=== PATIENT | female | born 1980 | race Caucasian/White ===

== ENCOUNTER 2016-11-07 08:34 | Inpatient (IN) | payer SELFPAY ==
[2016-11-07] MEDS ORDERED: FENTANYL CITRATE INJ/PF 100 MCG/2 ML AMPUL IV ONE ×2 (09:11→09:54)
[2016-11-07] MEDS ORDERED: ETOMIDATE INJ/PF 20 MG/10 ML SDV IV ONE (09:12)
[2016-11-07] MEDS ORDERED: MIDAZOLAM 2 MG/2 ML INJ IV ONE (09:12)
--- NOTE | 2016-11-07 09:25 | RADIOLOGY REPORT (SQ) ---
EXAM DESCRIPTION: CHEST PA/LAT COMPLETED DATE/TIME: 11/07/2016 9:01 am REASON FOR STUDY: feels like lung has collapsed, like before COMPARISON: Chest films 03/24/2015, 03/28/2015, 04/07/2015, 12/24/2015 EXAM PARAMETERS: NUMBER OF VIEWS: two views TECHNIQUE: Digital Frontal and Lateral radiographic views of the chest acquired. RADIATION DOSE: NA LIMITATIONS: none FINDINGS: LUNGS AND PLEURA: Moderate-sized, about 40% to 50%, right-sided pneumothorax with partial collapse of the right lung and trace right pleural fluid. Left lung well inflated and clear. No left pneumothorax or pleural effusion. There is very mild right to left mediastinal shift. MEDIASTINUM AND HILAR STRUCTURES: Very mild right to left mediastinal shift. No masses. HEART AND VASCULAR STRUCTURES: Heart normal size. No evidence for failure. BONES: No acute findings. HARDWARE: None in the chest. OTHER: No other significant finding. IMPRESSION: Moderate-sized right pneumothorax with partial collapse of the right lung, and very mild right to left mediastinal shift. COMMENT: Pertinent findings on the imaging study reported as a CRITICAL RESULT to ELMO RAPHAEL NP at09:15 on 11/07/2016. Category of Critical Result: Right pneumothorax with mediastinal shift TECHNICAL DOCUMENTATION: JOB ID: [id number] [employer]- All Rights Reserved
--- NOTE | 2016-11-07 09:42 | ER Document Report ---
ED General <AUSTEN AKBAR - Last Filed: 11/07/16 11:05> - General Mode of Arrival: Ambulatory Information source: Patient TRAVEL OUTSIDE OF THE [place] IN LAST 30 DAYS: No - HPI Onset: Just prior to arrival Onset/Duration: Sudden Quality of pain: Sharp Severity: Severe Pain Level: 5 Associated symptoms: None Exacerbated by: Deep breathing Relieved by: Denies Similar symptoms previously: Yes Recently seen / treated by doctor: No <ELMO RAPHAEL - Last Filed: 11/07/16 11:38> - General Chief Complaint: Shortness Of Breath Stated Complaint: DIFFICULTY BREATHING Time Seen by Provider: 11/07/16 08:53 Notes: Patient presents emergency department with complaints of a possible collapsed lung. Patient reports history of spontaneous pneumothorax in the past. She reports she was doing fine this morning. Denies recent cough. Denies trauma. Reports she bent over to tie her shoes felt a bubble in her back and then stood up and had excruciating pain to the right side. She reports this is the same way it felt when she had the last pneumothorax. Reports she has had nothing to eat/drink. 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 Lives with: Family Family History: Arthritis, CVA, DM, Hyperlipidemia, Hypertension, Malignancy Patient has suicidal ideation: No Patient has homicidal ideation: No Pulmonary Medical History: Reports: Hx Bronchitis, Other - pneumothorax Renal/ Medical History: Denies: Hx Peritoneal Dialysis Surgical Hx: Negative - Immunizations Immunizations up to date: No Hx Diphtheria, Pertussis, Tetanus Vaccination: No <ELMO RAPHAEL - Last Filed: 11/07/16 11:38> Review of Systems <AUSTEN AKBAR - Last Filed: 11/07/16 11:05> <ELMO RAPHAEL - Last Filed: 11/07/16 11:38> - Review of Systems Notes: Review HPI for review of systems., All other systems negative (ELMO RAPHAEL) Physical Exam <AUSTEN AKBAR - Last Filed: 11/07/16 11:05> <DONAVONELMO - Last Filed: 11/07/16 11:38> - Vital signs Vitals: Temp Pulse Resp BP Pulse Ox 97.7 F 99 22 H 119/79 97 11/07/16 08:38 11/07/16 08:38 11/07/16 08:38 11/07/16 08:38 11/07/16 08:38 - Notes Notes: PHYSICAL EXAMINATION: GENERAL: nontoxic looking, looks like she is hurting HEAD: Atraumatic, normocephalic. EYES: Pupils equal round extraocular movements intact, sclera anicteric, conjunctiva are normal. ENT: nares patent, oropharynx clear without exudates. Moist mucous membranes. NECK: Normal range of motion, supple without lymphadenopathy LUNGS: right side A&P decreased, left clear, no SOB, no difficulty breathing, 02sat 100% HEART: Regular rate and rhythm without murmurs ABDOMEN: Soft, no tenderness. No guarding, no rebound EXTREMITIES: Normal range of motion, no pitting edema. No cyanosis. NEUROLOGICAL: Cranial nerves grossly intact. Normal sensory/motor exams. PSYCH: Normal mood, normal affect. SKIN: Warm, Dry, normal turgor, no rashes or lesions noted (BASHIR RAPHAELRICIA) Course <AUSTEN AKBAR - Last Filed: 11/07/16 11:05> - Diagnostic Test Radiology reviewed: Image reviewed, Reports reviewed - #1 first xray- spont. pneumo 40% per dr christine, radiologist #2IMPRESSION: Interval placement of a right-sided chest tube with the tip coiled at the apex right hemithorax Resolved right apical pneumothorax. Resolved right to left mediastinal shift Trace right chest wall air Moderate gaseous distention of the stomach - Consults shady Time consulted: 09:53 Consulted provider: will come to ER <DONAVONELMO - Last Filed: 11/07/16 11:38> - Re-evaluation Re-evalutation: 11/07/16 09:54 24 Romansh chest tube placed by Dr. Akbar. PCXY confirmed placement, pneumo resolved, Dr. Foster consult for admission. He agrees with admission to regular floor. Patient complaining of pain now, fentanyl ordered. Patient to remain on O2 at 2l 11/07/16 10:00 dr foster in the ED 11/07/16 11:20 Pt in pain, RN contacted Dr. Foster for medications. Verbal orders written on these to be faxed out pharmacy and she will need to wait for pharmacy to populate the mar. Therefore I ordered 1 mg of Dilaudid for patient pain. 11/07/16 11:38 (ELMO RAPHAEL) - Vital Signs Vital signs: Temp Pulse Resp BP Pulse Ox 97.7 F 67 14 112/71 100 11/07/16 08:38 11/07/16 09:55 11/07/16 11:31 11/07/16 11:31 11/07/16 11:31 - Consults shady Reason for consultation: 11/07/16 09:53 spontaneous pneumothorax, chest tube placement (ELMO RAPHAEL) Procedures - Chest Tube Right Consent obtained: Yes Chest tube pre-insertion: Sterile PPE donned, Chloraprep applied, Sterile drapes applied Anesthetic type: 1% Lidocaine Chest tube post-insertion: Air thompson heard, Sutured, Position confirmed w/ CXR, Low intermittent suction - cxr with tube coiled in apex and lung reinflated. Chest tube drainage: air Number of attempts: 1 Complications: Yes - bagged for 2-3 minutes remaining at 100% the entire time after sedative med - Conscious Sedation Conscious sedation Consent obtained: Yes Indication: pneumothorax Last meal: no food today Normal healthy pt.: P1. - ASA Classification Airway Evaluation: Normal anatomy Mallampati Classification: Class 1 Used during procedure: IV access obtained, Pulse ox on pt., youth nutritional monitor on pt. Medications administered: Versed, Fentanyl, Etomidate Reversal agents: None I personally performed/intraservice time: Sedation, Procedure Complications: No <AUSTEN AKBAR - Last Filed: 11/07/16 11:05> Discharge <AUSTEN AKBAR - Last Filed: 11/07/16 11:05> - Discharge Admitting Provider: Surgicalist - cristian Unit Admitted: Surgical Floor <ELMO RAPHAEL - Last Filed: 11/07/16 11:38> - Discharge Clinical Impression: Pneumothorax Qualifiers: Pneumothorax type: spontaneous, primary Qualified Code(s): J93.11 - Primary spontaneous pneumothorax Condition: Stable Disposition: ADMITTED INPATIENT
--- NOTE | 2016-11-07 10:19 | RADIOLOGY REPORT (SQ) ---
EXAM DESCRIPTION: CHEST SINGLE VIEW COMPLETED DATE/TIME: 11/07/2016 10:02 am REASON FOR STUDY: chest tube placed, COMPARISON: Two-view chest 11/07/2016 EXAM PARAMETERS: NUMBER OF VIEWS: One view. TECHNIQUE: Single frontal radiographic view of the chest acquired. RADIATION DOSE: NA LIMITATIONS: None. FINDINGS: Interval placement of a right-sided chest tube, the tip is curled in the right lung apex. Resolution of the right pneumothorax. Resolved right to left mediastinal shift trace right chest wa ll air. LUNGS AND PLEURA: Resolved right pneumothorax. No focal infiltrates. No pleural effusions. MEDIASTINUM AND HILAR STRUCTURES: No masses. Contour normal. HEART AND VASCULAR STRUCTURES: Heart normal in size. Normal vasculature. BONES: No acute findings. HARDWARE: Right apical chest tube in place OTHER: Moderate gaseous distention of the stomach IMPRESSION: Interval placement of a right-sided chest tube with the tip coiled at the apex right hem ithorax Resolved right apical pneumothorax. Resolved right to left mediastinal shift Trace right chest wall air Moderate gaseous distention of the stomach TECHNICAL DOCUMENTATION: JOB ID: [id number]
[2016-11-07] MEDS ORDERED: HYDROMORPHONE HCL INJ/PF 2 MG/ML AMPULE IV ONE (11:20)
--- NOTE | 2016-11-07 12:27 | HISTORY AND PHYSICAL E ---
History and Physical NAME: VALENTIN WILDER : 1980 AGE: 36Y ADMITTED: 11/07/2016 ROOM: ED60 CHIEF COMPLAINT: Right chest pain. HISTORY OF PRESENT ILLNESS: This is a 36-year-old female who woke up this morning with severe right chest pain. She actually went to the bathroom and when she stooped down and tried to tie her shoelace developed severe pains in the right chest and then went to the emergency room where a chest x-ray showed at least a 40% pneumothorax of the right chest. A chest tube was placed in the emergency room by the ER physician. PAST HISTORY: History of a spontaneous right pneumothorax in 2014. She apparently was here and had a chest tube placed in the right chest. No other past medical history. ALLERGIES: NO KNOWN. FAMILY HISTORY: Noncontributory. REVIEW OF SYSTEMS: As in HPI. Denies any diarrhea, constipation, or dysuria. No headaches. No abdominal pains. Admits to having chest pains with shortness of breath. No neurologic abnormality. Denies any symptoms. No easy bruisability. The rest of the systems are reviewed and unremarkable. SOCIAL HISTORY: Smokes about a half a pack a day for 20 years. Denies alcohol or recreational drug use. PHYSICAL EXAM: GENERAL: Well-developed, well-nourished, 36-year-old female, alert and oriented. Complaining of right chest pain. NECK: Supple. No thyromegaly. LUNGS: Decreased breath sounds on the right side. Right chest tube was just placed by the ER physician. HEART: Showed regular sinus rhythm. ABDOMEN: Soft, nontender. EXTREMITIES: No edema. IMPRESSION: Spontaneous right pneumothorax, recurrent. PLAN: 1. Continue to keep a chest tube to water seal and suction. 2. Two serial portable x-rays. 3. Since this is the second episode for this patient, she has a high-risk to have another third episode and most likely I will have to refer her to a thoracic surgeon after discharge for possible VATS therapy of the right lung. DICTATING PHYSICIAN: NATHANIEL BRANTLEY M.D. [id number] PHY#: [id number] ID: [id number] JOB#: [id number] ACCT: [id number] cc:Cassius NAPOLES MD
[2016-11-07] MEDS: HYDROMORPHONE HCL INJ/PF 2 MG/ML AMPULE IV PRN ×3 (13:49→20:26)
[2016-11-07] MEDS: ONDANSETRON HCL INJ/PF 4 MG/2 ML SDV IV PRN ×2 (16:16→22:26)
[2016-11-08] MEDS: HYDROMORPHONE HCL INJ/PF 2 MG/ML AMPULE IV PRN ×6 (00:19→17:51)
[2016-11-08] MEDS: ONDANSETRON HCL INJ/PF 4 MG/2 ML SDV IV PRN ×3 (06:48→20:28)
[2016-11-08] MEDS ORDERED: ENOXAPARIN SODIUM INJ 30 MG/0.3 ML DISP.SYRIN SUBCUT SCH (10:00)
--- NOTE | 2016-11-08 12:52 | PROGRESS NOTE E ---
Progress Note NAME: VALENTIN WILDER : 1980 AGE: 36Y DATE: 11/08/2016 ROOM: 531 Her chest x-ray showed resolution of the right pneumothorax. She is still in a lot of pain, however. In the meantime, we will stop the suction from the chest tube since there is no air leak. I might remove the tube tonight or in the a.m. DICTATING PHYSICIAN: NATHANIEL BRANTLEY M.D. [id number] PHY#: [id number] ID: [id number] JOB#: [id number] ACCT: [id number] cc: >
--- NOTE | 2016-11-08 13:14 | RADIOLOGY REPORT (SQ) ---
EXAM DESCRIPTION: CHEST SINGLE VIEW COMPLETED DATE/TIME: 11/08/2016 1:01 pm REASON FOR STUDY: pneumothorax rt COMPARISON: 11/07/2016. EXAM PARAMETERS: NUMBER OF VIEWS: One view. TECHNIQUE: Single frontal radiographic view of the chest acquired. RADIATION DOSE: NA LIMITATIONS: None. FINDINGS: LUNGS AND PLEURA: No opacities, masses or pneumothorax. No pleural effusion. MEDIASTINUM AND HILAR STRUCTURES: No masses. Contour normal. HEART AND VASCULAR STRUCTURES: Heart normal in size. Normal vasculature. BONES: No acute findings. HARDWARE: Stable right-sided chest tube. OTHER: No other significant finding. IMPRESSION: STABLE RIGHT SIDE CHEST TUBE. NO PNEUMOTHORAX. NO ACUTE FINDINGS. TECHNICAL DOCUMENTATION: JOB ID: [id number]
--- NOTE | 2016-11-08 15:47 | OPERATIVE REPORT E ---
Operative Report NAME: VALENTIN WILDER : 1980 AGE: 36Y DATE OF SURGERY: 11/08/2016 ROOM: 531 PREOPERATIVE DIAGNOSIS: Resolved right pneumothorax, post right chest tube placement. POSTOPERATIVE DIAGNOSIS: Resolved right pneumothorax, post right chest tube placement. OPERATION: Removal of right chest tube. SURGEON: NATHANIEL BRANTLEY M.D. ANESTHESIA: Sedation. INDICATION: This is a 36-year-old female who had a spontaneous right pneumothorax yesterday morning. A right chest tube was inserted in the emergency room by the ER physician with resolution of the pneumothorax. Chest x-ray today also showed resolution of the pneumothorax. PROCEDURE: The patient was given IV Dilaudid for sedation. The patient was then placed in the left lateral decubitus position with the right arm extended over the head and chest tube insertion site dressing removed. The suture around the chest tube was then cut and a dressing with Xeroform gauze was applied immediately to the chest tube insertion site after pulling the chest tube quickly. The patient was asked to take some deep breaths and then hold her breath prior to removal of the chest tube. The patient able to breathe quite well post removal of the chest tube. Occlusive dressing was placed around the dressing. A chest x-ray will be obtained in about an hour to make sure there is no recurrence of the pneumothorax. If there is no recurrence or minimal pneumothorax, then patient can be discharged. She will be followed in the clinic and also with possible cardiothoracic surgeon for VATS treatment of recurrent pneumothorax. DICTATING PHYSICIAN: NATHANIEL BRANTLEY M.D. [id number] PHY#: [id number] ID: [id number] JOB#: [id number] ACCT: [id number] cc:NATHANIEL BRANTLEY M.D. >
--- NOTE | 2016-11-08 16:20 | RADIOLOGY REPORT (SQ) ---
EXAM DESCRIPTION: CHEST SINGLE VIEW COMPLETED DATE/TIME: 11/08/2016 4:04 pm REASON FOR STUDY: post chest tube removal COMPARISON: 11/08/2016. EXAM PARAMETERS: NUMBER OF VIEWS: One view. TECHNIQUE: Single frontal radiographic view of the chest acquired. RADIATION DOSE: NA LIMITATIONS: None. FINDINGS: LUNGS AND PLEURA: Redevelopment of right side pneumothorax following chest tube removal. Left lung clear. MEDIASTINUM AND HILAR STRUCTURES: No masses. Contour normal. HEART AND VASCULAR STRUCTURES: Heart normal in size. Normal vasculature. BONES: No acute findings. HARDWARE: None in the chest. OTHER: No other significant finding. IMPRESSION: REDEVELOPMENT OF RIGHT-SIDED PNEUMOTHORAX FOLLOWING CHEST TUBE REMOVAL. TECHNICAL DOCUMENTATION: JOB ID: [id number]
[2016-11-08] MEDS ORDERED: LIDOCAINE 1% INJ-PF (10 MG/ML) 30 ML SDV ONE (17:41)
[2016-11-08] MEDS ORDERED: LIDOCAINE 1% INJ (10 MG/ML) 10 ML MDV INJ ONE (18:33)
--- NOTE | 2016-11-08 21:00 | RADIOLOGY REPORT (SQ) ---
EXAM DESCRIPTION: CHEST SINGLE VIEW COMPLETED DATE/TIME: 11/08/2016 6:54 pm REASON FOR STUDY: post reinsertion of chest tube COMPARISON: 11/08/2016 at 1500 hours EXAM PARAMETERS: NUMBER OF VIEWS: One view. TECHNIQUE: Single frontal radiographic view of the chest acquired. RADIATION DOSE: NA LIMITATIONS: None. FINDINGS: LUNGS AND PLEURA: No opacities, masses or pneumothorax. No pleural effusion. MEDIASTINUM AND HILAR STRUCTURES: No masses. Contour normal. HEART AND VASCULAR STRUCTURES: Heart normal in size. Normal vasculature. BONES: No acute findings. HARDWARE: Right chest tube with tip overlying the right apex. OTHER: No other significant finding. IMPRESSION: Right chest tube with tip overlying the right apex. No residual pneumothorax identified . TECHNICAL DOCUMENTATION: JOB ID: [id number]
--- NOTE | 2016-11-08 22:17 | OPERATIVE REPORT E ---
Operative Report NAME: VALENTIN WILDER : 1980 AGE: 36Y DATE OF SURGERY: 11/08/16 ROOM: 531 PREOPERATIVE DIAGNOSIS: Recurrent right pneumothorax. POSTOPERATIVE DIAGNOSIS: Recurrent right pneumothorax. PROCEDURE: Placement of new chest tube of the right 5th and 3rd costal space, mid clavicular line. SURGEON: NATHANIEL BRANTLEY M.D. ANESTHESIA: Local MAC. INDICATION: This is a 36-year-old female who had a spontaneous pneumothorax on the right side 2 days ago. This is her second episode. The first was in 2014. She is a heavy smoker. The chest x-ray today from the first chest tube insertion showed the lung was completely reexpanded. The first chest tube was then removed, but post removal of the chest tube showed at least a 20% recurrent pneumothorax. Because of this, another chest tube is being inserted. DESCRIPTION OF PROCEDURE: Patient was placed in the supine position with the head slightly elevated and the right breast and below the breast areas were then prepped and draped in the usual sterile fashion. Local anesthesia was infiltrated along the 5th intercostal space just below the breast. A 1.5 cm incision was made. Further anesthesia was infiltrated. Patient was given 1 mg of Dilaudid a few minutes earlier. Next, the fifth intercostal space was then bluntly dissected. Further local anesthesia infiltrated along the pleura. Next, the pleura was then punctured and enlarged with a hemostat and a 24 [place] chest tube was inserted up to about 19 cm margaux. It was then anchored to the skin with 0-Silk. A Vaseline gauze was then placed around the insertion site and a sterile gauze was used as a dressing. The chest tube was then connected to a Pleur-Evac. The connections were then reinforced with adhesive tape. A stat portable chest x-ray will be obtained post placement of the chest tube. Patient tolerated the procedure well. DICTATING PHYSICIAN: NATHANIEL BRANTLEY M.D. [id number] PHY#: [id number] ID: [id number] JOB#: [id number] ACCT: [id number] cc:NATHANIEL BRANTLEY M.D. >
[2016-11-09] MEDS: HYDROMORPHONE HCL INJ/PF 2 MG/ML AMPULE IV PRN ×6 (00:03→22:00)
[2016-11-09] MEDS: NORMAL SALINE 1000 ML 1,000 ML IV PRN ×2 (04:59→16:07)
[2016-11-09] MEDS: ONDANSETRON HCL INJ/PF 4 MG/2 ML SDV IV PRN (05:04)
--- NOTE | 2016-11-09 09:02 | RADIOLOGY REPORT (SQ) ---
EXAM DESCRIPTION: CHEST PA/LAT COMPLETED DATE/TIME: 11/09/2016 8:54 am REASON FOR STUDY: chest tube COMPARISON: 11/08/2016. EXAM PARAMETERS: NUMBER OF VIEWS: two views TECHNIQUE: Digital Frontal and Lateral radiographic views of the chest acquired. RADIATION DOSE: NA LIMITATIONS: none FINDINGS: LUNGS AND PLEURA: No opacities, masses or pneumothorax. No pleural effusion. MEDIASTINUM AND HILAR STRUCTURES: No masses or contour abnormalities. HEART AND VASCULAR STRUCTURES: Heart normal size. No evidence for failure. BONES: No acute findings. HARDWARE: Stable right chest tube. OTHER: No other significant finding. IMPRESSION: STABLE RIGHT CHEST TUBE. NO PNEUMOTHORAX. TECHNICAL DOCUMENTATION: JOB ID: [id number] [employer]- All Rights Reserved
--- NOTE | 2016-11-09 09:21 | PDOC PROGRESS REPORT ---
Subjective Progress Note for:: 11/09/16 Subjective:: Patient complaining of some pain at the chest tube insertion site Physical Exam Vital Signs: Temp Pulse Resp BP Pulse Ox 98.4 F 78 16 113/58 L 95 11/09/16 07:42 11/09/16 07:42 11/09/16 07:42 11/09/16 07:42 11/09/16 07:42 Intake & Output 11/08/16 11/09/16 11/10/16 06:59 06:59 06:59 Intake Total 590 2223 Output Total 20 15 Balance 570 2208 Weight 40.8 kg 41.9 kg General appearance: PRESENT: no acute distress Respiratory exam: PRESENT: other - Chest tube dressing in place; no subcu air. Chest tube has some fluctuation in the waterseal compartment; there is no gillian air leak. I placed chest tube on waterseal Results Impressions: Chest X-Ray 11/09/16 00:00 IMPRESSION: STABLE RIGHT CHEST TUBE. NO PNEUMOTHORAX. Assessment & Plan - Diagnosis (1) Pneumothorax Qualifiers: Pneumothorax type: spontaneous, primary Qualified Code(s): J93.11 - Primary spontaneous pneumothorax Is this a current diagnosis for this admission?: YesPlan: Post chest tube placement and repositioning, now with chest x-ray unexpanded, chest tube in excellent position Plan: 1. Waterseal 2. Role of smoking cessation discussed 3. Check chest x-ray in a.m. Satisfactory, plan to remove chest tube
[2016-11-09] MEDS: DOCUSATE SODIUM 100 MG CAPSULE PO SCH (09:31)
[2016-11-10] MEDS: HYDROMORPHONE HCL INJ/PF 2 MG/ML AMPULE IV PRN ×4 (00:50→15:14)
--- NOTE | 2016-11-10 08:38 | RADIOLOGY REPORT (SQ) ---
EXAM DESCRIPTION: CHEST PA/LAT COMPLETED DATE/TIME: 11/10/2016 8:26 am REASON FOR STUDY: Tube placement right side COMPARISON: 11/09/2016 EXAM PARAMETERS: NUMBER OF VIEWS: two views TECHNIQUE: Digital Frontal and Lateral radiographic views of the chest acquired. RADIATION DOSE: NA LIMITATIONS: none FINDINGS: LUNGS AND PLEURA: Small right apical pneumothorax. Small right pleural effusion. Lungs a ppear free of active infiltrate. No effusion or pneumothorax on the left. MEDIASTINUM AND HILAR STRUCTURES: No masses or contour abnormalities. HEART AND VASCULAR STRUCTURES: Heart normal size. No evidence for failure. BONES: No acute findings. HARDWARE: Right chest tube with tip the apex. OTHER: No other significant finding. IMPRESSION: 1. Small right apical pneumothorax and small right pleural effusion with right chest tu be in place. TECHNICAL DOCUMENTATION: JOB ID: [id number] [employer]- All Rights Reserved
[2016-11-10] MEDS: DOCUSATE SODIUM 100 MG CAPSULE PO SCH (09:35)
--- NOTE | 2016-11-10 09:36 | PDOC PROGRESS REPORT ---
Subjective Progress Note for:: 11/10/16 Subjective:: To be comfortable. No shortness of breath. Physical Exam Vital Signs: Temp Pulse Resp BP Pulse Ox 98.6 F 64 16 102/52 L 97 11/10/16 08:00 11/10/16 08:00 11/10/16 08:00 11/10/16 08:00 11/09/16 23:34 Intake & Output 11/09/16 11/10/16 11/11/16 06:59 06:59 06:59 Intake Total 2223 3298 Output Total 15 1020 Balance 2208 2278 Weight 41.9 kg 42.2 kg Exam: Chest tube does not have any air leak. Results Impressions: Chest X-Ray 11/10/16 06:30 IMPRESSION: 1. Small right apical pneumothorax and small right pleural effusion with right chest tube in place. Assessment & Plan - Diagnosis (1) Pneumothorax Qualifiers: Pneumothorax type: spontaneous, primary Qualified Code(s): J93.11 - Primary spontaneous pneumothorax Is this a current diagnosis for this admission?: Yes (2) Tobacco abuse Plan: Put back the chest tube to suction and follow-up chest x-ray in a.m.. Hold off pulling out the chest tube today because of the presence of small right apical pneumothorax with the chest tube on waterseal. - Time Time Spent with patient: 15-24 minutes
[2016-11-10] MEDS: NORMAL SALINE 1000 ML 1,000 ML IV PRN (12:48)
[2016-11-10] MEDS ORDERED: MORPHINE SULFATE 10 MG/ML INJ IV PRN (18:54)
[2016-11-10] MEDS ORDERED: DIPHENHYDRAMINE HCL 50 MG/ML VIAL IV ONE (19:30)
[2016-11-10] MEDS: OXYCODONE-ACETAMINOPHEN 5-325 MG TABLET PO PRN (22:54)
[2016-11-11] MEDS: OXYCODONE-ACETAMINOPHEN 5-325 MG TABLET PO PRN ×2 (04:26→11:32)
--- NOTE | 2016-11-11 09:44 | RADIOLOGY REPORT (SQ) ---
EXAM DESCRIPTION: CHEST SINGLE VIEW COMPLETED DATE/TIME: 11/11/2016 9:32 am REASON FOR STUDY: Check chest tube and pneumothorax COMPARISON: Chest films 11/10/2016, 11/09/2016, 11/08/2016, 11/07/2016 EXAM PARAMETERS: NUMBER OF VIEWS: One view. TECHNIQUE: Single frontal radiographic view of the chest acquired. RADIATION DOSE: NA LIMITATIONS: None. FINDINGS: LUNGS AND PLEURA: On the right side, a chest tube is in place, the tip is at the apex righ t hemithorax. No pneumothorax is identified on today's study. Lungs are free of focal infiltrates. No pleural effusions. No pulmonary nodules. MEDIASTINUM AND HILAR STRUCTURES: No masses. Contour normal. HEART AND VASCULAR STRUCTURES: Heart normal in size. Normal vasculature. BONES: No acute findings. HARDWARE: Right chest tube in place, unchanged OTHER: No other significant finding. IMPRESSION: Right chest tube unchanged, with the tip at the apex right hemithorax. No right-sided pneumothorax identified on today's study. No focal infiltrates. No pleural effusions. TECHNICAL DOCUMENTATION: JOB ID: [id number]
[2016-11-11] MEDS: DOCUSATE SODIUM 100 MG CAPSULE PO SCH (11:34)
[2016-11-11 12:03] VITALS: BP 116/72
--- NOTE | 2016-11-11 12:59 | RADIOLOGY REPORT (SQ) ---
EXAM DESCRIPTION: CHEST PA/LAT COMPLETED DATE/TIME: 11/11/2016 12:43 pm REASON FOR STUDY: S/P CHEST TUBE REMOVAL COMPARISON: 11/11/2016 EXAM PARAMETERS: NUMBER OF VIEWS: two views TECHNIQUE: Digital Frontal and Lateral radiographic views of the chest acquired. RADIATION DOSE: NA LIMITATIONS: none FINDINGS: LUNGS AND PLEURA: No significant pneumothorax status post removal of right chest tube. Mi nimal right apical scarring mild pleural thickening along the right lateral chest wall. Lungs are ot herwise clear. No significant effusion. MEDIASTINUM AND HILAR STRUCTURES: No masses or contour abnormalities. HEART AND VASCULAR STRUCTURES: Heart normal size. No evidence for failure. BONES: No acute findings. HARDWARE: None in the chest. OTHER: No other significant finding. IMPRESSION: No significant pneumothorax status post removal of right chest tube. TECHNICAL DOCUMENTATION: JOB ID: [id number] [employer]- All Rights Reserved
--- NOTE | 2016-11-15 22:32 | DISCHARGE SUMMARY E ---
Discharge Summary NAME: VALENTIN WILDER : 1980 AGE: 36Y ADMITTED: 11/07/2016 DISCHARGED: 11/11/2016 FINAL DIAGNOSIS: Recurrent right spontaneous pneumothorax. PROCEDURES: Insertion of right chest tube by ER physician on 11/07/2016. Reinsertion of right chest tube on 11/08/[address] Beck. HOSPITAL COURSE: This is a 36-year-old female who had a spontaneous pneumothorax in 2014. Again this time had another episode of complained of right chest pain. Chest x-ray showed pneumothorax of moderate size, and ER physician placed a right chest tube. The lung reexpanded right away on chest x-ray. The next day the lung remains expanded with chest tube to water seal. I removed the chest tube and subsequent chest x-ray showed a 20% pneumothorax. Because of this, a new chest tube was inserted through the midclavicular fifth intercostal space. Chest tube reexpanded the lung but the chest tube needed to be on suction, and finally a chest x-ray on 11/11/2016 showed the lung completely expanded. This time the chest tube was removed and chest x-ray post chest tube removal showed the lung completely expanded without any pneumothorax. The patient was then discharged on 11/11/2016. The patient to be seen in the surgical office in about 3 days. The patient was advised to see a thoracic surgeon in [place] or [facility] to seek opinion regarding possible pleurodesis. The patient has been a smoker and she said she will stop smoking with this second episode of pneumothorax. DICTATING PHYSICIAN: NATHANIEL BECK M.D. [id number] PHY#: [id number] ID: [id number] JOB#: [id number] ACCT: [id number] cc:NATHANIEL BECK M.D., PATRICIA N.P. >
== END 2016-11-11 16:10 | disposition home or self-care (01) | DRG 165 ==
LOC: ER 08:34 → EH 10:20 → UNDOADMIN 10:21 → 5 12:22
PROVIDERS: ADMIT Surgery; ATTEND Surgery
PROC: 0W9930Z Drainage of Right Pleural Cavity with Drainage Device, Percutaneous Approach (ICD-10-PCS; principal; 2016-11-08)
PROC: 0BP Respiratory System, Removal (ICD-10-PCS; 2016-11-08)
PROC: 0W9930Z Drainage of Right Pleural Cavity with Drainage Device, Percutaneous Approach (ICD-10-PCS; 2016-11-08)
DX: J93.11 Primary spontaneous pneumothorax (principal); F17.210 Nicotine dependence, cigarettes, uncomplicated; Z82.61 Family history of arthritis; Z82.3 Family history of stroke; Z83.3 Family history of diabetes mellitus; Z80.9 Family history of malignant neoplasm, unspecified; Z82.49 Family history of ischemic heart disease and other diseases of the circulatory system
CPT/HCPCS: 71010; 71020; 99285; 99152; J1170; J1200; J2250; J2270; J2405; J3010; J3490; J7030

== ENCOUNTER 2017-05-14 13:43 | Emergency (ER) | payer BC, MEDICAID ==
[2017-05-14 13:56] VITALS: BP 118/70
--- NOTE | 2017-05-14 14:49 | RADIOLOGY REPORT (SQ) ---
EXAM DESCRIPTION: CHEST PA/LAT COMPLETED DATE/TIME: 05/14/2017 2:35 pm REASON FOR STUDY: cough COMPARISON: 03/28/2015, 12/24/2015, 11/11/2016 EXAM PARAMETERS: NUMBER OF VIEWS: two views TECHNIQUE: Digital Frontal and Lateral radiographic views of the chest acquired. RADIATION DOSE: NA LIMITATIONS: none FINDINGS: LUNGS AND PLEURA: Tiny right apical bulla or bleb. No pneumothorax. No pleural effusion. No acute infiltrates. MEDIASTINUM AND HILAR STRUCTURES: No masses or contour abnormalities. HEART AND VASCULAR STRUCTURES: Heart normal size. No evidence for failure. BONES: No acute findings. HARDWARE: None in the chest. OTHER: No other significant finding. IMPRESSION: No pneumothorax. Tiny right apical bulla or bleb, stable compared to previous films. TECHNICAL DOCUMENTATION: JOB ID: [id number] [employer]- All Rights Reserved
--- NOTE | 2017-05-14 14:53 | ER Document Report ---
HPI - HPI Pain Level: 2 Notes: Patient is a 36-year-old female who presents to the ED complaining of a dry nonproductive cough, nasal congestion/discharge, intermittent fever and body ache 3-4 days. Patient states that she is still eating and drinking without any difficulties. She is urinating normally having normal bowel movements. Patient has not been using any ljeq-ulf-gxcaxho meds for symptoms. Patient reports a medical history of 3 spontaneous pneumothorax on the right side with the last one being in November. Patient states that her specialist is not sure why she is getting a spontaneous pneumothoraces. Patient states that she really just wants something for her cough to help calm it down because she did have one pneumothorax develop when she was coughing in the past. She has no other concerns or complaints at this time. Denies any headache, current fever, neck pain, sore throat, chest pain, palpitations, syncope, shortness of breath, wheeze, dyspnea, abdominal pain, nausea/vomiting/diarrhea, urinary retention, dysuria, hematuria, or rash. - ROS Systems Reviewed and Negative: Yes All other systems reviewed and negative - RESPIRATORY Respiratory: REPORTS: Trouble Breathing, Coughing - hx PE - REPRODUCTIVE Reproductive: DENIES: : Past Medical History - Social History Smoking Status: Former Smoker Chew tobacco use (# tins/day): No Frequency of alcohol use: Rare Drug Abuse: None Family History: Arthritis, CVA, DM, Hyperlipidemia, Hypertension, Malignancy Patient has suicidal ideation: No Patient has homicidal ideation: No Pulmonary Medical History: Reports: Hx Bronchitis Renal/ Medical History: Denies: Hx Peritoneal Dialysis Psychiatric Medical History: Denies: Hx Depression - Immunizations Immunizations up to date: No Hx Diphtheria, Pertussis, Tetanus Vaccination: No Vertical Provider Document - CONSTITUTIONAL Agree With Documented VS: Yes Notes: PHYSICAL EXAMINATION: GENERAL: Well-appearing, well-nourished and in no acute distress. A&Ox4. Answers questions appropriately. Moves comfortably w/o notable distress HEAD: Atraumatic, normocephalic. EYES: Pupils equal round and reactive to light, extraocular movements intact, sclera anicteric, conjunctiva are normal. ENT: EAC clear b/l. TM's intact b/l without erythema, fluid, or perforation. Nares patent and with clear discharge. oropharynx no erythema without exudates. No tonsilar hypertrophy without erythema or exudate. No palatine shift. Uvula midline. No tongue protrusion. No drooling, hoarseness, or airway compromise. Moist mucous membranes. No sinus tenderness. NECK: Normal range of motion, supple without lymphadenopathy. No rigidity/ meningismus. LUNGS: Breath sounds clear to auscultation bilaterally and equal. No wheezes rales or rhonchi. No retractions HEART: Regular rate and rhythm without murmurs, rubs, gallops. ABDOMEN: Soft, nontender, nondistended abdomen. No guarding, no rebound. No masses appreciated. Normal bowel sounds present. No CVA tenderness bilaterally. No hepatosplenomegaly. NEUROLOGICAL: Normal speech, normal gait. Normal sensory, motor exams PSYCH: Normal mood, normal affect. SKIN: Warm, Dry, normal turgor, no rashes or lesions noted. - INFECTION CONTROL TRAVEL OUTSIDE OF THE [place] IN LAST 30 DAYS: No - RESPIRATORY O2 Sat by Pulse Oximetry: 98 Course - Re-evaluation Re-evalutation: 05/14/17 14:55 Patient is an afebrile, well-hydrated, 36-year-old female who presents ED with acute URI, suspect influenza. Vitals are stable. PE is otherwise unremarkable. CXR unremarkable for acute pathology compared to previous. No labs or imaging warranted at this time based on H&P. H/o Pneumothoraces, see hpi. Patient has no other significant cardiopulmonary or immunocompromised medical conditions. Patient's lungs are clear to auscultation bilaterally without tachycardia, hypoxia, or tachypnea. Patient is tolerating p.o. without any difficulties. I did thoroughly review the risks and benefits side effects of Tamiflu, but patient declines at this time. I will send her home with a prescription for Cheratussin. Low suspicion for any meningitis, sepsis, peritonsillar/pharyngeal abscess, respiratory compromise, severe dehydration, or other emergent systemic condition at this time. Patient is aware this condition can change from initial presentation and she needs to monitor symptoms closely. Conservative measures otherwise for symptoms. Recheck with your PCM in 3-5 days. Return to the ED with any worsening/concerning symptoms otherwise as reviewed in discharge. Patient is in agreement. - Vital Signs Vital signs: Temp Pulse Resp BP Pulse Ox 97.8 F 79 16 118/70 98 05/14/17 13:54 05/14/17 13:54 02/09/18 13:54 05/14/17 13:54 05/14/17 13:54 Discharge - Discharge Clinical Impression: Acute URI, Influenza Condition: Stable Disposition: HOME, SELF-CARE Instructions: Influenza ([facility]), Upper Respiratory Illness ([facility]) Additional Instructions: Maintain adequate fluid intake Take meds as directed tylenol/ibuprofen as needed over the counter cold medication as needed for symptoms Humidified air may help Wash your hands regularly Wear a mask when coughing F/u: with your PCM in 3-5 days for a recheck Return to the ED with any fever, worsening pain, chest pain, palpitations, syncope, worsening GANT, neck pain/stiffness, shortness of breath, wheezing, drooling, trouble swallowing/breathing, abdominal pain, n/v/d, rash, or worsening/concerning symptoms otherwise. Prescriptions: Codeine Phosphate/Guaifenesin [Cheratussin Ac Syrup] 10 ml PO QID #200 ml Referrals: [facility] [Provider Group] - Follow up as needed [facility] [Provider Group] - Follow up as needed
== END 2017-05-14 15:10 | disposition home or self-care (01) ==
LOC: ER 13:43
DX: J11.1 Influenza due to unidentified influenza virus with other respiratory manifestations (principal); R05 Cough; R09.81 Nasal congestion; R09.89 Other specified symptoms and signs involving the circulatory and respiratory systems; R50.9 Fever, unspecified; M79.1 Myalgia; Z87.891 Personal history of nicotine dependence
CPT/HCPCS: 71046; 99283

== ENCOUNTER 2018-04-16 11:06 | Emergency (ER) | payer BC ==
[2018-04-16] MEDS ORDERED: PREDNISONE 20 MG TABLET PO ONE (12:03)
--- NOTE | 2018-04-16 12:35 | ER Document Report ---
Addendum entered and electronically signed by IRAIS DE DIOS NP 04/16/18 12:53: Discharge - Discharge Clinical Impression: Viral upper respiratory illness Condition: Stable Disposition: HOME, SELF-CARE Additional Instructions: UPPER RESPIRATORY ILLNESS: You have a viral infection of the respiratory passages -- a "cold." This common infection causes nasal congestion, drainage, and often sore throat and cough. It is highly contagious. The disease usually lasts about 10 to 14 days. There is no "cure" for the viral infection -- it must run its course. If there is a complication, such as bacterial infection in the nose, sinuses, middle ear, or bronchial tubes, antibiotics may be required. The antibiotics won't affect the virus. Drink plenty of fluids. A humidifier may help. An expectorant medication or decongestant may make you more comfortable. Use acetaminophen or ibuprofen for fever or aches. See the doctor if fever persists over two days, if there is any significant worsening of your symptoms, or if you simply fail to improve as expected. BRONCHOSPASM: You have tightness in the bronchial tubes, called bronchospasm. This often occurs with bronchial infections. Allergies, inhaled chemicals, and polluted or cold air can also provoke bronchospasm. It's more likely in patients with asthma in the family. Emergency treatment of bronchospasm may include adrenaline shots or bronchodilator aerosol. You may feel lightheaded and have a rapid pulse for an hour or two. Rest and get plenty of fluids. At home, we'll treat you with a bronchodilator inhaler. Antibiotics and corticosteroids may be required for some patients. Until you recover, avoid chemical fumes, dusts, pollens, and exercising in very cold or dry air. If you smoke, stop now!! If you develop a fever, increased wheezing, chest pain, or severe shortness of breath, you should contact the doctor immediately. COUGH-SUPPRESSANT & EXPECTORANT MEDICATION: You are to use a cough medication as needed for relief of symptoms. This medicine is a combination of an expectorant (to make the mucous thinner and more easily "coughed up") and a cough suppressant (to reduce the frequency of coughin g). The cough-suppressant medicine is related to narcotics. You may experience mild nausea and sleepiness. Some patients who are very sensitive to narcotics may have stomach pain from this medicine. Taking the medicine with food reduces these side effects. Do not drive or work with machinery until you know how this medicine affects you. The expectorant should have no side effects. Iodine-containing expectorants (such as organidin) should not be taken by persons with active thyroid disease unless approved by your doctor. Call the doctor if you develop shortness of breath, hives, rash, itching, lightheadedness, or severe nausea and vomiting. INHALED BRONCHODILATORS: You have received a treatment of and/or prescription for an inhaled bronchodilator -- a medication which stimulates the airways in the lung to dilate. This improves the flow of air in asthma, bronchitis, and emphysema. These medicines have some similarity to adrenaline, and can cause similar side effects: shakiness, racing heart, and a sense of nervousness. These side effects decrease with time. Contact your doctor if these side effects are severe. Do not over-use the medicine. Too-frequent use of the inhaler may make it ineffective. Call your doctor if the inhaler is not controlling your symptoms at the prescribed doses. STEROID MEDICATION: You have been given an injection of or oral medicine of the cortisone/steroid class. This medication is used to control inflammation or allergy. Kalpesh t is usually only given for a short period of time, until the acute process subsides. There are usually no side effects from short-term use of cortisone-like medications. Some persons feel an increased sense of well-being and are not sleepy at bedtime. Long-term use of cortisone medications is best avoided, unless required for a severe condition. If your condition does not remit, or relapses after the course of corticosteroid medication, you should consult your physician. USE OF ACETAMINOPHEN (Tylenol): Acetaminophen may be taken for pain relief or fever control. It's much safer than aspirin, offering a wider range of "safe" dosages. It is safe during . Some brand names are Tylenol, Panadol, Datril, Anacin 3, Tempra, and Liquiprin. Acetaminophen can be repeated every four hours. The following are maximum recommended dosages: >89 pounds or adults 650 mg to 900 mg Acetaminophen can be repeated every four hours. Maximum dose not to exceed 4000 mg a day. FOLLOW-UP CARE: If you have been referred to a physician for follow-up care, call the physicians office for an appointment as you were instructed or within the next two days. If you experience worsening or a significant change in your symptoms, notify the physician immediately or return to the Emergency Department at any time for re-evaluation. Your strep test was negative today. This will be sent down for a culture as well, if there is any abnormality someone will call you in the next 48-72 hours. Take all medications as prescribed. Please purchase an hgcr-hyr-uprtoqt decongestant such as Sudafed. Drink plenty of fluids. Rest over the next several days. I have provided you a work note for the next 2 days off of work. Return to the emergency department if you develop worsening symptoms such as worsening shortness of breath, difficulty breathing or any other symptom that is concerning to you. Prescriptions: Codeine Phosphate/Guaifenesin [Codeine-Guaifen 10-100 mg/5 ml] 10 ml PO QHS #60 ml Benzonatate [Tessalon Perles 100 mg Capsule] 100 mg PO Q8HP PRN #40 capsule PRN Reason: Fluticasone Propionate [Flonase Nasal Neihart 50 Mcg/Neihart 16 gm] 2 sprays NASL Q12 #1 inhaler Prednisone [Deltasone 20 mg Tablet] 3 tab PO DAILY 4 Days #12 tablet Forms: Return to Work Original Note: HPI - HPI Time Seen by Provider: 04/16/18 11:43 Pain Level: 2 Notes: Patient is a 37-year-old female who presents to the emergency department department with complaint of chills, cough, nasal congestion and sore throat over the last several days. Patient reports the cough is so severe that it is keeping her up all night. Patient reports history last year of spontaneous pneumothorax but denies any other medical conditions. - CONSTITUTIONAL Constitutional: DENIES: Fever, Chills - EENT EENT: REPORTS: Sore Throat - RESPIRATORY Respiratory: REPORTS: Coughing - REPRODUCTIVE Reproductive: DENIES: : Past Medical History - General Information source: Patient - Social History Smoking Status: Never Smoker Frequency of alcohol use: None Drug Abuse: None Family History: Arthritis, CVA, DM, Hyperlipidemia, Hypertension, Malignancy Patient has suicidal ideation: No Patient has homicidal ideation: No Pulmonary Medical History: Reports: Hx Bronchitis Renal/ Medical History: Denies: Hx Peritoneal Dialysis Psychiatric Medical History: Denies: Hx Depression Past Surgical History: Reports: Other - Right-sided chest tubes for pneumothorax - Immunizations Immunizations up to date: No Hx Diphtheria, Pertussis, Tetanus Vaccination: No Vertical Provider Document - CONSTITUTIONAL Notes: PHYSICAL EXAMINATION: GENERAL: Well-appearing, well-nourished and in no acute distress. HEAD: Atraumatic, normocephalic. EYES: Pupils equal round extraocular movements intact, conjunctiva are normal. ENT: Nares patent with clear rhinorrhea., NECK: Normal range of motion, mildly enlarged cervical lymph nodes. LUNGS: No respiratory distress, lung sounds clear to auscultation bilaterally, no increased work of breathing. Musculoskeletal: Normal range of motion NEUROLOGICAL: Normal speech, normal gait. PSYCH: Normal mood, normal affect. SKIN: Warm, Dry, normal turgor, no rashes or lesions noted. - INFECTION CONTROL TRAVEL OUTSIDE OF THE [place] IN LAST 30 DAYS: No Course - Re-evaluation Re-evalutation: 04/16/18 12:42 Rapid strep is negative, patient will be discharged home on symptomatic treatment for viral upper respiratory infection. - Vital Signs Vital signs: Temp Pulse Resp BP Pulse Ox 98.2 F 101 H 18 114/63 98 04/16/18 11:17 04/16/18 11:17 04/16/18 11:17 04/16/18 11:17 04/16/18 11:17 Discharge - Discharge Clinical Impression: Viral upper respiratory illness Condition: Stable Disposition: HOME, SELF-CARE Additional Instructions: UPPER RESPIRATORY ILLNESS: You have a viral infection of the respiratory passages -- a "cold." This common infection causes nasal congestion, drainage, and often sore throat and cough. It is highly contagious. The disease usually lasts about 10 to 14 days. There is no "cure" for the viral infection -- it must run its course. If there is a complication, such as bacterial infection in the nose, sinuses, middle ear, or bronchial tubes, antibiotics may be required. The antibiotics won't affect the virus. Drink plenty of fluids. A humidifier may help. An expectorant medication or decongestant may make you more comfortable. Use acetaminophen or ibuprofen for fever or aches. See the doctor if fever persists over two days, if there is any significant worsening of your symptoms, or if you simply fail to improve as expected. BRONCHOSPASM: You have tightness in the bronchial tubes, called bronchospasm. This often occurs with bronchial infections. Allergies, inhaled chemicals, and polluted or cold air can also provoke bronchospasm. It's more likely in patients with asthma in the family. Emergency treatment of bronchospasm may include adrenaline shots or bronchodilator aerosol. You may feel lightheaded and have a rapid pulse for an hour or two. Rest and get plenty of fluids. At home, we'll treat you with a bronchodilator inhaler. Antibiotics and corticosteroids may be required for some patients. Until you recover, avoid chemical fumes, dusts, pollens, and exercising in very cold or dry air. If you smoke, stop now!! If you develop a fever, increased wheezing, chest pain, or severe shortness of breath, you should contact the doctor immediately. COUGH-SUPPRESSANT & EXPECTORANT MEDICATION: You are to use a cough medication as needed for relief of symptoms. This medicine is a combination of an expectorant (to make the mucous thinner and more easily "coughed up") and a cough suppressant (to reduce the frequency of coughing). The cough-suppressant medicine is related to narcotics. You may experience mild nausea and sleepiness. Some patients who are very sensitive to narcotics may have stomach pain from this medicine. Taking the medicine with food reduces these side effects. Do not drive or work with machinery until you know how this medicine affects you. The expectorant should have no side effects. Iodine-containing expectorants (such as organidin) should not be taken by persons with active thyroid disease unless approved by your doctor. Call the doctor if you develop shortness of breath, hives, rash, itching, lightheadedness, or severe nausea and vomiting. INHALED BRONCHODILATORS: You have received a treatment of and/or prescription for an inhaled bronchodilator -- a medication which stimulates the airways in the lung to dilate. This improves the flow of air in asthma, bronchitis, and emphysema. These medicines have some similarity to adrenaline, and can cause similar side effects: shakiness, racing heart, and a sense of nervousness. These side effects decrease with time. Contact your doctor if these side effects are severe. Do not over-use the medicine. Too-frequent use of the inhaler may make it ineffective. Call your doctor if the inhaler is not controlling your symptoms at the prescribed doses. STEROID MEDICATION: You have been given an injection of or oral medicine of the cortisone/steroid class. This medication is used to control inflammation or allergy. Kalpesh t is usually only given for a short period of time, until the acute process subsides. There are usually no side effects from short-term use of cortisone-like medications. Some persons feel an increased sense of well-being and are not sleepy at bedtime. Long-term use of cortisone medications is best avoided, unless required for a severe condition. If your condition does not remit, or relapses after the course of corticosteroid medication, you should consult your physician. USE OF ACETAMINOPHEN (Tylenol): Acetaminophen may be taken for pain relief or fever control. It's much safer than aspirin, offering a wider range of "safe" dosages. It is safe during . Some brand names are Tylenol, Panadol, Datril, Anacin 3, Tempra, and Liquiprin. Acetaminophen can be repeated every four hours. The following are maximum recommended dosages: >89 pounds or adults 650 mg to 900 mg Acetaminophen can be repeated every four hours. Maximum dose not to exceed 4000 mg a day. FOLLOW-UP CARE: If you have been referred to a physician for follow-up care, call the physicians office for an appointment as you were instructed or within the next two days. If you experience worsening or a significant change in your symptoms, notify the physician immediately or return to the Emergency Department at any time for re-evaluation. Your strep test was negative today. This will be sent down for a culture as well, if there is any abnormality someone will call you in the next 48-72 hours. Take all medications as prescribed. Please purchase an ghay-ocr-nbafknh decongestant such as Sudafed. Drink plenty of fluids. Rest over the next several days. I have provided you a work note for the next 2 days off of work. Return to the emergency department if you develop worsening symptoms such as worsening shortness of breath, difficulty breathing or any other symptom that is concerning to you. Prescriptions: Codeine Phosphate/Guaifenesin [Codeine-Guaifen 10-100 mg/5 ml] 10 ml PO QHS #60 ml Benzonatate [Tessalcarolyn Perles 100 mg Capsule] 100 mg PO Q8HP PRN #40 capsule PRN Reason: Prednisone [Deltasone 20 mg Tablet] 3 tab PO DAILY 4 Days #12 tablet Forms: Return to Work
[2018-04-16 12:54] VITALS: BP 123/73
== END 2018-04-16 12:54 | disposition home or self-care (01) ==
LOC: ER 11:06
DX: J06.9 Acute upper respiratory infection, unspecified (principal); B97.89 Other viral agents as the cause of diseases classified elsewhere; R05 Cough; R09.81 Nasal congestion; J02.9 Acute pharyngitis, unspecified
CPT/HCPCS: 99283; 87070; 87880; J7512

== ENCOUNTER 2018-05-28 11:16 | Inpatient (IN) | payer BC ==
[2018-05-28] MEDS ORDERED: NORMAL SALINE 1000 ML 1,000 ML IV ONE (11:29)
[2018-05-28] MEDS ORDERED: ONDANSETRON HCL INJ/PF 4 MG/2 ML SDV IV ONE ×2 (11:29→11:35)
--- NOTE | 2018-05-28 11:33 | ER Document Report ---
ED Medical Screen (RME) - General Chief Complaint: Shortness Of Breath Stated Complaint: RIGHT BACK AND SIDE PAIN Time Seen by Provider: 05/28/18 11:29 Notes: Patient is a 37-year-old female with history of prior pneumothorax that presents to the emergency department for chief complaint of right-sided chest pain shortness of breath. Patient is concerned she has another pneumothorax on the right side, she bent over this morning and felt a "bubbly sensation and then a pop in her lung. ROS: Other than noted above, the 12 point review of systems was reviewed with the patient and were negative, all pertinent findings are included in the HPI. PHYSICAL EXAMINATION: Vital signs reviewed. GENERAL: Patient appears uncomfortable on exam HEAD: Atraumatic, normocephalic. EYES: Pupils equal round extraocular movements intact, conjunctiva are normal. ENT: Nares patent NECK: Normal range of motion CV: Heart regular rate and rhythm LUNGS: Lung sounds are diminished on the right compared to the left, but not absent Musculoskeletal: Normal range of motion NEUROLOGICAL: Normal speech PSYCH: Normal mood, normal affect. MDM: Patient seen and examined for rapid initial assessment. Vital signs reviewed. A comprehensive ED assessment and evaluation of the patient, analysis of test results and completion of the medical decision making process will be conducted by additional ED providers. *Note is created using voice recognition software and may contain spelling, syntax or grammatical errors. TRAVEL OUTSIDE OF THE [place] IN LAST 30 DAYS: No - Related Data Allergies/Adverse Reactions: No Known Allergies Allergy (Verified 05/28/18 11:31) Past Medical History - Social History Chew tobacco use (# tins/day): No Frequency of alcohol use: None Drug Abuse: None Pulmonary Medical History: Reports: Hx Bronchitis Renal/ Medical History: Denies: Hx Peritoneal Dialysis Psychiatric Medical History: Denies: Hx Depression Past Surgical History: Reports: Other - Right-sided chest tubes for pneumothorax - Immunizations Immunizations up to date: No Hx Diphtheria, Pertussis, Tetanus Vaccination: No Physical Exam - Vital signs Vitals: Temp Pulse Resp BP Pulse Ox 97.6 F 82 16 100/66 98 05/28/18 11:25 05/28/18 11:25 05/28/18 11:25 05/28/18 11:25 05/28/18 11:25 Course - Vital Signs Vital signs: Temp Pulse Resp BP Pulse Ox 97.6 F 82 16 100/66 98 05/28/18 11:25 05/28/18 11:25 05/28/18 11:25 05/28/18 11:25 05/28/18 11:25
[2018-05-28] MEDS ORDERED: FENTANYL CITRATE INJ/PF 100 MCG/2 ML AMPUL IV ONE ×2 (11:35→12:22)
[2018-05-28] MEDS ORDERED: MIDAZOLAM 2 MG/2 ML INJ IV ONE (12:22)
[2018-05-28] MEDS ORDERED: LIDOCAINE 1%/EPINEPHRINE INJ 20 ML VIAL ONE (12:29)
--- NOTE | 2018-05-28 13:12 | RADIOLOGY REPORT (SQ) ---
EXAM DESCRIPTION: CHEST 2 VIEWS COMPLETED DATE/TIME: 05/28/2018 12:48 pm REASON FOR STUDY: shortness of breath, hx ptx, right side pain COMPARISON: 05/14/2017 TECHNIQUE: Frontal and lateral radiographic views of the chest acquired. NUMBER OF VIEWS: Two view. LIMITATIONS: None. FINDINGS: LUNGS AND PLEURA: Large right pneumothorax with collapse of the right lung, approximately 6 mm of midline shift to the patient's left side. No consolidation or pleural effusion. MEDIASTINUM AND HILAR STRUCTURES: Stable. HEART AND VASCULAR STRUCTURES: Stable. BONES: No acute findings. HARDWARE: None in the chest. OTHER: No other significant finding. IMPRESSION: Large right pneumothorax with collapse of the right lung, approximately 6 mm of midline shift to the patient's left side. COMMENT: These results were called to Dr. Avila at 1300 hours. Results were confirmed and read back. TECHNICAL DOCUMENTATION: JOB ID: [id number] [id number] 2010 [employer]- All Rights Reserved Reading location - IP/workstation name: [email or web address]
[2018-05-28 13:19] LABS: ABSOLUTE BASOPHILS # (AUTO) 0.1 10^3/uL (0.0-0.2); ABSOLUTE EOSINOPHILS # (AUTO) 0.1 10^3/uL (0.0-0.6); ABSOLUTE LYMPHOCYTES (AUTO) 2.6 10^3/uL (0.5-4.7); ABSOLUTE MONOCYTES (AUTO) 0.6 10^3/uL (0.1-1.4); ABSOLUTE NEUT (AUTO) 3.6 10^3/uL (1.7-8.2); ALANINE AMINOTRANSFERASE 8 U/L (9-52); ALBUMIN 4.9 g/dL (3.5-5.0); ALKALINE PHOSPHATASE 60 U/L (38-126); ANION GAP 11 (5-19); ASPARTATE AMINO TRANSFERASE 36 U/L (14-36); BASOPHILS % (AUTO) 1.3 % (0-2); BILIRUBIN,DIRECT 0.3 mg/dL (0.0-0.4); BILIRUBIN,TOTAL 0.6 mg/dL (0.2-1.3); BLOOD UREA NITROGEN 14 mg/dL (7-20); CALCIUM 9.6 mg/dL (8.4-10.2); CARBON DIOXIDE 26 mmol/L (22-30); CHLORIDE 107 mmol/L (98-107); EOSINOPHILS % (AUTO) 1.6 % (0-6); GLUCOSE 94 mg/dL (75-110); HEMATOCRIT 43.4 % (36.0-47.0); HEMOGLOBIN 14.9 g/dL (12.0-15.5); LYMPHOCYTES % (AUTO) 37.2 % (13-45); MEAN CORPUSCULAR HEMOGLOBIN 30.7 pg (27.0-33.4); MEAN CORPUSCULAR HGB CONC 34.2 g/dL (32.0-36.0); MEAN CORPUSCULAR VOLUME 90 fl (80-97); MONOCYTES % (AUTO) 8.2 % (3-13); PLATELET COUNT 361 10^3/uL (150-450); POTASSIUM 4.3 mmol/L (3.6-5.0); RED BLOOD COUNT 4.83 10^6/uL (3.72-5.28); RED CELL DISTRIBUTION WIDTH 13.5 % (11.5-14.0); SEGMENTED NEUTROPHILS % (AUTO) 51.7 % (42-78); SODIUM 143.7 mmol/L (137-145); TOTAL CELLS COUNTED % (AUTO) 100 %; TOTAL PROTEIN 8.2 g/dL (6.3-8.2); WHITE BLOOD COUNT 6.9 10^3/uL (4.0-10.5)
--- NOTE | 2018-05-28 13:21 | EKG REPORT ---
SEVERITY:- BORDERLINE ECG - SINUS RHYTHM SHORT IA INTERVAL, ACCELERATED AV CONDUCTION CONSIDER RIGHT VENTRICULAR HYPERTROPHY : Confirmed by: Gregory Paz MD 28-May-2018 13:21:29
[2018-05-28] MEDS ORDERED: ONDANSETRON HCL INJ/PF 4 MG/2 ML SDV IV PRN (13:27)
--- NOTE | 2018-05-28 13:36 | RADIOLOGY REPORT (SQ) ---
EXAM DESCRIPTION: CHEST SINGLE VIEW COMPLETED DATE/TIME: 05/28/2018 1:27 pm REASON FOR STUDY: Post Chest tube placement COMPARISON: Earlier exam same date TECHNIQUE: Single frontal radiographic view of the chest acquired. NUMBER OF VIEWS: One view. LIMITATIONS: None. FINDINGS: LUNGS AND PLEURA: Small residual right apical pneumothorax following right chest tube inse rtion. Mild subsegmental atelectasis along the minor fissure. Left lung remains clear. MEDIASTINUM AND HILAR STRUCTURES: Stable. HEART AND VASCULAR STRUCTURES: Stable. BONES: No acute findings. HARDWARE: None in the chest. OTHER: No other significant finding. IMPRESSION: Small residual right apical pneumothorax following right chest tube insertion. Mild sub segmental atelectasis along the minor fissure. Left lung remains clear. TECHNICAL DOCUMENTATION: JOB ID: [id number] [id number] 2010 [employer]- All Rights Reserved Reading location - IP/workstation name: [email or web address]
[2018-05-28] MEDS: MORPHINE SULFATE 10 MG/ML INJ IV PRN ×2 (13:43→17:33)
--- NOTE | 2018-05-28 13:47 | Operative Report ---
Nonrecallable Operative Report DATE OF SURGERY: 05/28/18 PREOPERATIVE DIAGNOSIS: Large right-sided pneumothorax POSTOPERATIVE DIAGNOSIS: Same as above. OPERATION: Right-sided tube thoracostomy SURGEON: ZOHAIB GANN ANESTHESIA: Moderate Sedation TISSUE REMOVED OR ALTERED: None COMPLICATIONS: None apparent ESTIMATED BLOOD LOSS: Minimal PROCEDURE: Drains/implants: 28 [place] chest tube. Procedure in detail: After informed consent was obtained from the patient, she was laid in the supine position in the emergency department. Moderate sedation was obtained using 2 mg of Versed and 100 mcg of fentanyl. 1% lidocaine was then injected into the subcutaneous tissue of the chest. An incision was created in the mid axillary line, at the level of the nipple. The dissection was carried cranially toward the fourth intercostal space. A blunt Montse clamp was used to enter the chest, over top of the rib. A large thompson of air was noted. A 28 [place] chest tube was slid into the thoracic cavity and directed superiorly. The tube was then sutured to the chest using 0 silk suture. A dressing was then placed, and the procedure was concluded. All sponge, instrument, and needle counts were correct x2. Condition: Stable.
[2018-05-28] MEDS: KETOROLAC TROMETHAMINE INJ/PF 30 MG/1 ML SDV IV SCH ×2 (14:28→21:45)
[2018-05-28] MEDS: HYDROCODONE/ACETAMINOPHEN 10-325 MG TABLET PO PRN ×2 (14:28→23:36)
[2018-05-28] MEDS ORDERED: ENOXAPARIN SODIUM INJ 30 MG/0.3 ML DISP.SYRIN SUBCUT ONE (17:00)
[2018-05-28] MEDS: DOCUSATE SODIUM 100 MG/10 ML UDC PO SCH (17:29)
--- NOTE | 2018-05-28 19:20 | PDOC H&P ---
History of Present Illness Admission Date/PCP: 05/28/18 13:04 Patient complains of: Right chest pain and shortness of breath History of Present Illness: VALENTIN WILDER is a 37 year old female with a history of spontaneous pneumothorax on the right. She has had 2 previous occurrences in the right chest, this occurrence makes her third. The patient reports coughing with pain in the right chest. The pain became worse and she began to have some difficulty breathing. This occurred earlier today. Her pain is sharp and stabbing. Her pain does not radiate. Patient presented to the emergency department for evaluation. The patient denies headache, fevers, chills, abdominal pain, nausea, vomiting, dizziness, orthostasis, blurry vision. Past Medical History Pulmonary Medical History: Reports: Bronchitis Psychiatric Medical History: Denies: Depression Past Surgical History Past Surgical History: Reports: Other - Right-sided chest tubes for pneumothorax Social History Smoking Status: Former Smoker Frequency of Alcohol Use: Rare Hx Recreational Drug Use: No Drugs: None Hx Prescription Drug Abuse: No Family History Family History: Arthritis, CVA, DM, Hyperlipidemia, Hypertension, Malignancy Parental Family History Reviewed: Yes Children Family History Reviewed: Yes Sibling(s) Family History Reviewed.: Yes Medication/Allergy Home Medications: Folic Acid [Folvite 1 mg Tablet] 1 mg PO DAILY 05/28/18 Liothyronine Sodium [Cytomel] 5 mcg PO Q6AM MDD X7DAYS THEN INCREASE TO BID 05/28/18 Allergies/Adverse Reactions: No Known Allergies Allergy (Verified 05/28/18 11:31) Review of Systems Constitutional: ABSENT: anorexia, chills, fatigue, fever(s), headache(s) Eyes: ABSENT: visual disturbances Ears: ABSENT: hearing changes Nose, Mouth, and Throat: ABSENT: sore throat Cardiovascular: PRESENT: chest pain, dyspnea on exertion Respiratory: PRESENT: cough, dyspnea Gastrointestinal: ABSENT: abdominal pain, bloating, constipation Genitourinary: ABSENT: difficulty urinating Integumentary: ABSENT: pruritus, rash Neurological: ABSENT: confusion, convulsions, dizziness Psychiatric: ABSENT: anxiety, depression Endocrine: ABSENT: cold intolerance, heat intolerance Hematologic/Lymphatic: ABSENT: easy bleeding, easy bruising Physical Exam Vital Signs: Temp Pulse Resp BP Pulse Ox 97.6 F 82 16 100/66 99 05/28/18 11:25 05/28/18 11:25 05/28/18 11:25 05/28/18 11:25 05/28/18 11:34 Intake & Output 05/27/18 05/28/18 05/29/18 06:59 06:59 06:59 Weight 41 kg General appearance: PRESENT: mild distress - Respiratory Head exam: PRESENT: atraumatic, normocephalic Eye exam: PRESENT: EOMI, PERRLA. ABSENT: scleral icterus Mouth exam: PRESENT: moist, neck supple Teeth exam: PRESENT: poor dentation Neck exam: ABSENT: meningismus, tenderness, thyromegaly Respiratory exam: PRESENT: accessory muscle use, decreased breath sounds - Right side, tachypnea Cardiovascular exam: PRESENT: RRR Pulses: PRESENT: normal radial pulses Vascular exam: PRESENT: normal capillary refill. ABSENT: pallor GI/Abdominal exam: PRESENT: soft. ABSENT: distended, guarding, rigid, tenderness Rectal exam: PRESENT: deferred Extremities exam: ABSENT: clubbing Musculoskeletal exam: ABSENT: deformity Neurological exam: PRESENT: alert, awake, oriented to person, oriented to place, oriented to time, oriented to situation, CN II-XII grossly intact Psychiatric exam: PRESENT: anxious. ABSENT: agitated, depressed Focused psych exam: ABSENT: delusional Skin exam: ABSENT: cyanosis, erythema, jaundice Results Laboratory Results: 05/28/18 12:00 05/28/18 12:00 05/28/18 05/28/18 12:00 12:00 WBC 6.9 RBC 4.83 Hgb 14.9 Hct 43.4 MCV 90 MCH 30.7 MCHC 34.2 RDW 13.5 Plt Count 361 Seg Neutrophils % 51.7 Lymphocytes % 37.2 Monocytes % 8.2 Eosinophils % 1.6 Basophils % 1.3 Absolute Neutrophils 3.6 Absolute Lymphocytes 2.6 Absolute Monocytes 0.6 Absolute Eosinophils 0.1 Absolute Basophils 0.1 Sodium 143.7 Potassium 4.3 Chloride 107 Carbon Dioxide 26 Anion Gap 11 BUN 14 Creatinine 0.90 Est GFR ( Amer) > 60 Est GFR (Non-Af Amer) > 60 Glucose 94 Calcium 9.6 Total Bilirubin 0.6 AST 36 ALT 8 L Alkaline Phosphatase 60 Total Protein 8.2 Albumin 4.9 05/28/18 12:00 Troponin I < 0.012 Impressions: Chest X-Ray 05/28/18 11:33 IMPRESSION: Large right pneumothorax with collapse of the right lung, approximately 6 mm of midline shift to the patient's left side. Assessment & Plan - Diagnosis (1) Recurrent spontaneous pneumothorax Is this a current diagnosis for this admission?: Yes - Plan Summary Plan Summary: This is a 37-year-old female with her third recurrence of a right sided spontaneous pneumothorax. The patient will require tube thoracostomy acutely to help resolve her symptoms of tachypnea and hypoxia. I have strongly encouraged the patient to consider VATS with mechanical pleurodesis. I will discuss with anesthesia of the possibility of performing this procedure at our institution. The patient is requesting to stay here, as opposed to transfer to [place]. I will try to make arrangements for the operation. The plan has been discussed with the patient at length.
[2018-05-28] MEDS: FAMOTIDINE 20 MG TABLET PO SCH (21:45)
[2018-05-29] MEDS: KETOROLAC TROMETHAMINE INJ/PF 30 MG/1 ML SDV IV SCH ×3 (05:55→21:13)
[2018-05-29] MEDS: HYDROCODONE/ACETAMINOPHEN 10-325 MG TABLET PO PRN ×2 (08:41→19:26)
[2018-05-29] MEDS: FAMOTIDINE 20 MG TABLET PO SCH ×2 (10:02→21:13)
[2018-05-29] MEDS: ENOXAPARIN SODIUM INJ 30 MG/0.3 ML DISP.SYRIN SUBCUT SCH (10:03)
[2018-05-29] MEDS: DOCUSATE SODIUM 100 MG/10 ML UDC PO SCH (10:03)
[2018-05-29] MEDS: MORPHINE SULFATE 10 MG/ML INJ IV PRN (10:07)
--- NOTE | 2018-05-29 10:34 | RADIOLOGY REPORT (SQ) ---
EXAM DESCRIPTION: CHEST SINGLE VIEW COMPLETED DATE/TIME: 05/29/2018 8:21 am REASON FOR STUDY: PTX COMPARISON: 05/28/2018 NUMBER OF VIEWS: One view. TECHNIQUE: Single frontal radiographic image of the chest acquired. LIMITATIONS: None. FINDINGS: LUNGS AND PLEURA: No significant pneumothorax. Lungs clear. MEDIASTINUM AND HEART: Stable heart size and mediastinal structures. SUPPORT DEVICES: Stable position of right chest tube. BONY STRUCTURES: No acute findings. HARDWARE: None. OTHER: No other significant finding. IMPRESSION: No significant pneumothorax. Reading location - IP/workstation name: [email or web address]
--- NOTE | 2018-05-29 13:50 | PDOC PROGRESS REPORT ---
Subjective Progress Note for:: 05/29/18 Subjective:: 37-year-old female with a recurrent right-sided spontaneous pneumothorax. She has some pain in her right posterior chest, but denies shortness of breath. She denies abdominal pain, nausea, vomiting, fevers, chills, malaise, fatigue, headache, blurry vision. Reason For Visit: RECURRENT SPONTANEOUS PNEUMOTHORAX Physical Exam Vital Signs: Temp Pulse Resp BP Pulse Ox 98.3 F 52 L 16 84/43 L 92 05/29/18 11:23 05/29/18 11:23 05/29/18 11:23 05/29/18 11:23 05/29/18 11:23 Intake & Output 05/28/18 05/29/18 05/30/18 06:59 06:59 06:59 Intake Total 750 Balance 750 Weight 47.1 kg General appearance: PRESENT: no acute distress, cooperative Head exam: PRESENT: atraumatic, normocephalic Eye exam: PRESENT: EOMI, PERRLA. ABSENT: scleral icterus Mouth exam: PRESENT: moist, neck supple Neck exam: ABSENT: meningismus, tenderness, thyromegaly, tracheal deviation Respiratory exam: PRESENT: chest wall tenderness - Right side, other - Right- sided chest tube to suction. No air leak present.. ABSENT: tachypnea, wheezes Cardiovascular exam: PRESENT: RRR Pulses: PRESENT: normal radial pulses Vascular exam: PRESENT: normal capillary refill. ABSENT: pallor GI/Abdominal exam: PRESENT: soft. ABSENT: distended, hernia, rigid, tenderness Rectal exam: PRESENT: deferred Extremities exam: ABSENT: clubbing Musculoskeletal exam: ABSENT: deformity Neurological exam: PRESENT: alert, awake, oriented to person, oriented to place, oriented to time, oriented to situation, CN II-XII grossly intact Psychiatric exam: ABSENT: agitated, anxious, depressed Focused psych exam: ABSENT: delusional Skin exam: ABSENT: cyanosis, erythema, jaundice Results Laboratory Results: 05/28/18 12:00 05/28/18 12:00 05/28/18 12:00 Troponin I < 0.012 Impressions: Chest X-Ray 05/29/18 06:28 IMPRESSION: No significant pneumothorax. Assessment & Plan - Diagnosis (1) Recurrent spontaneous pneumothorax Is this a current diagnosis for this admission?: Yes - Plan Summary Plan Summary: There is a 37-year-old female with a recurrent right-sided spontaneous pneumothorax. The patient has no appreciable air leak today. She has no shor tness of breath. I have discussed VATS with the patient at length. She requests that VATS be performed here. I am still making arrangements with anesthesia to ensure that this can be safely performed at our institution. Plan to perform surgery either Wednesday or Wednesday, once the dual-lumen endotracheal tube has been delivered to the hospital. The patient is in agreement with the treatment plan.
[2018-05-29] MEDS: DOCUSATE SODIUM 100 MG CAPSULE PO SCH (17:28)
[2018-05-30] MEDS: KETOROLAC TROMETHAMINE INJ/PF 30 MG/1 ML SDV IV SCH ×3 (05:25→21:03)
--- NOTE | 2018-05-30 07:42 | PDOC PROGRESS REPORT ---
Subjective Progress Note for:: 05/30/18 Subjective:: 37-year-old female with a recurrent right-sided spontaneous pneumothorax. She has some pain in her right posterior chest, but denies shortness of breath. She denies abdominal pain, nausea, vomiting, fevers, chills, malaise, fatigue, headache, blurry vision. Reason For Visit: RECURRENT SPONTANEOUS PNEUMOTHORAX Physical Exam Vital Signs: Temp Pulse Resp BP Pulse Ox 98.3 F 58 L 16 96/47 L 97 05/29/18 23:20 05/29/18 23:20 05/29/18 23:20 05/29/18 23:20 05/29/18 23:20 Intake & Output 05/29/18 05/30/18 05/31/18 06:59 06:59 06:59 Intake Total 750 840 Balance 750 840 Weight 47.1 kg 47.1 kg General appearance: PRESENT: no acute distress Head exam: PRESENT: atraumatic, normocephalic Eye exam: PRESENT: EOMI, PERRLA Mouth exam: PRESENT: moist, neck supple Teeth exam: PRESENT: poor dentation Neck exam: ABSENT: meningismus, tenderness, tracheal deviation Respiratory exam: PRESENT: other - Right-sided tube thoracostomy in place. No air leak. Cardiovascular exam: PRESENT: RRR Pulses: PRESENT: normal radial pulses Vascular exam: PRESENT: normal capillary refill GI/Abdominal exam: PRESENT: soft. ABSENT: distended, tenderness Rectal exam: PRESENT: deferred Extremities exam: ABSENT: clubbing Musculoskeletal exam: ABSENT: deformity Neurological exam: PRESENT: alert, awake, oriented to person, oriented to place, oriented to time, oriented to situation Psychiatric exam: ABSENT: agitated, anxious, depressed Focused psych exam: ABSENT: delusional Skin exam: ABSENT: erythema, jaundice Results Laboratory Results: 05/28/18 12:00 05/28/18 12:00 05/28/18 12:00 Troponin I < 0.012 Impressions: Chest X-Ray 05/29/18 06:28 IMPRESSION: No significant pneumothorax. Assessment & Plan - Diagnosis (1) Recurrent spontaneous pneumothorax Is this a current diagnosis for this admission?: Yes - Plan Summary Plan Summary: This is a 37-year-old female with a recurrent right-sided spontaneous pneumothorax. The patient has no appreciable air leak today. She has no shortness of breath. She requests that VATS be performed here. The dual-lumen endotracheal tube is currently in route to our hospital. Plan to perform surgery tomorrow. The patient is in agreement with the treatment plan.
[2018-05-30] MEDS: ENOXAPARIN SODIUM INJ 30 MG/0.3 ML DISP.SYRIN SUBCUT SCH (10:49)
[2018-05-30] MEDS: HYDROCODONE/ACETAMINOPHEN 10-325 MG TABLET PO PRN ×3 (10:56→23:03)
[2018-05-30] MEDS: FAMOTIDINE 20 MG TABLET PO SCH ×2 (10:58→21:03)
[2018-05-30] MEDS: DOCUSATE SODIUM 100 MG CAPSULE PO SCH ×2 (10:58→17:25)
[2018-05-30] MEDS ORDERED: GLUCAGON,HUMAN RECOMB 1 MG INJ SUBCUT PRN (16:51)
[2018-05-30] MEDS ORDERED: DEXTROSE 50%-WATER 25 GM/50 ML DISP.SYRIN IV PRN ×2 (16:51)
[2018-05-30] MEDS ORDERED: DEXTROSE 40% GEL 15 GM TUBE PO PRN ×2 (16:51)
[2018-05-30] MEDS: MORPHINE SULFATE 10 MG/ML INJ IV PRN (17:23)
[2018-05-31] MEDS: KETOROLAC TROMETHAMINE INJ/PF 30 MG/1 ML SDV IV SCH ×3 (05:12→22:38)
[2018-05-31] MEDS: HYDROCODONE/ACETAMINOPHEN 10-325 MG TABLET PO PRN ×2 (08:06→13:18)
--- NOTE | 2018-05-31 08:30 | ER Document Report ---
Entered by MADELAINE VOSS SCRIBE 05/28/18 1158 Acting as scribe for:SACHI SYED MD ED Respiratory Problem - General Chief Complaint: Shortness Of Breath Stated Complaint: RIGHT BACK AND SIDE PAIN Time Seen by Provider: 05/28/18 11:29 Mode of Arrival: Wheelchair Information source: Patient Notes: 37-year-old female who presents to the emergency department today with complaints of right-sided chest pain with associated shortness of breath. Patient has had 2 pneumothoraxes in the past and she states her symptoms today feel exactly the same as her previous pneumothorax. Patient states at 0945 this morning she was bending over to pick something up when she "felt it start". at bedside states that at 1100 it "collapsed the rest of the way". Patient has a smoking history but stopped smoking in January of 2018. TRAVEL OUTSIDE OF THE [place] IN LAST 30 DAYS: No - Related Data Allergies/Adverse Reactions: No Known Allergies Allergy (Verified 05/28/18 11:31) Past Medical History - General Information source: Patient - Social History Smoking Status: Former Smoker - Quit January 2018 Chew tobacco use (# tins/day): No Frequency of alcohol use: None Drug Abuse: None Lives with: Family Family History: Arthritis, CVA, DM, Hyperlipidemia, Hypertension, Malignancy Patient has suicidal ideation: No Patient has homicidal ideation: No Pulmonary Medical History: Reports: Hx Bronchitis, Other - History of multiple pneumothorax Psychiatric Medical History: Denies: Hx Depression Surgical Hx: Negative Past Surgical History: Reports: Other - Right-sided chest tubes for pneumothorax - Immunizations Immunizations up to date: No Hx Diphtheria, Pertussis, Tetanus Vaccination: No Review of Systems - Review of Systems Constitutional: No symptoms reported EENT: No symptoms reported Cardiovascular: See HPI, Chest pain Respiratory: See HPI, Short of breath Gastrointestinal: No symptoms reported Genitourinary: No symptoms reported Female Genitourinary: No symptoms reported Musculoskeletal: No symptoms reported Skin: No symptoms reported Hematologic/Lymphatic: No symptoms reported Neurological/Psychological: No symptoms reported -: Yes All other systems reviewed and negative Physical Exam - Vital signs Vitals: Temp Pulse Resp BP Pulse Ox 97.6 F 82 16 100/66 98 05/28/18 11:25 05/28/18 11:25 05/28/18 11:25 05/28/18 11:25 05/28/18 11:25 - Notes Notes: Physical Exam: General: Alert, appears well. HEENT: Normocephalic. Atraumatic. PERRL. Extraocular movements intact. Oropharynx clear. Neck: Supple. Non-tender. Respiratory: Mild respiratory distress. Decreased breath sounds on the right. Cardiovascular: Regular rate and rhythm. Abdominal: Normal Inspection. Non-tender. No distension. Normal Bowel Sounds. Back: Non-tender. No deformity or step off. Extremities: Moves all four extremities. Upper extremities: Normal inspection. Normal ROM. Lower extremities: Normal inspection. No edema. Normal ROM. Neurological: Normal cognition. AAOx4. Normal speech. Psychological: Normal affect. Normal Mood. Skin: Warm. Dry. Normal color. Course - Vital Signs Vital signs: Temp Pulse Resp BP Pulse Ox 97.6 F 82 16 100/66 99 05/28/18 11:25 05/28/18 11:25 05/28/18 11:25 05/28/18 11:25 05/28/18 11:34 - Laboratory Result Diagrams: 05/28/18 12:00 05/28/18 12:00 Laboratory results interpreted by me: 05/28/18 12:00 ALT 8 L - Diagnostic Test Radiology reviewed: Image reviewed - Right pneumothorax - Consults Dr. Parker Time consulted: 11:52 Consulted provider: will come to ER Discharge - Discharge Clinical Impression: Spontaneous pneumothorax Condition: Stable Disposition: ADMITTED INPATIENT Admitting Provider: Surgicalist Unit Admitted: Surgical Floor I personally performed the services described in the documentation, reviewed and edited the documentation which was dictated to the scribe in my presence, and it accurately records my words and actions.
[2018-05-31] MEDS ORDERED: SUCCINYLCHOLINE CHLORIDE INJ 200 MG/10 ML VIAL ONE (08:56)
[2018-05-31] MEDS ORDERED: ONDANSETRON HCL INJ/PF 4 MG/2 ML SDV ONE (08:56)
[2018-05-31] MEDS ORDERED: DEXAMETHASONE SOD PHOSPHATE INJ 4 MG/1 ML VIAL ONE (08:56)
[2018-05-31] MEDS ORDERED: ROCURONIUM BROMIDE INJ 50 MG/5 ML VIAL IV ONE (08:56)
[2018-05-31] MEDS ORDERED: GLYCOPYRROLATE 1 MG/5 ML SYRINGE ONE (08:56)
[2018-05-31] MEDS: FAMOTIDINE 20 MG TABLET PO SCH ×2 (09:33→22:37)
--- NOTE | 2018-05-31 10:55 | PDOC PROGRESS REPORT ---
Subjective Progress Note for:: 05/31/18 Subjective:: 37-year-old female with a recurrent right-sided spontaneous pneumothorax. She has some pain in her right posterior chest, but denies shortness of breath. She denies abdominal pain, nausea, vomiting, fevers, chills, malaise, fatigue, headache, blurry vision. Reason For Visit: RECURRENT SPONTANEOUS PNEUMOTHORAX Physical Exam Vital Signs: Temp Pulse Resp BP Pulse Ox 97.8 F 54 L 15 93/48 L 98 05/31/18 07:49 05/31/18 07:49 05/31/18 07:49 05/31/18 07:49 05/31/18 07:49 Intake & Output 05/30/18 05/31/18 06/01/18 06:59 06:59 06:59 Intake Total 840 240 Balance 840 240 Weight 47.1 kg 47.1 kg Exam: General appearance: PRESENT: no acute distress Head exam: PRESENT: atraumatic, normocephalic Eye exam: PRESENT: EOMI, PERRLA Mouth exam: PRESENT: moist, neck supple Teeth exam: PRESENT: poor dentation Neck exam: ABSENT: meningismus, tenderness, tracheal deviation Respiratory exam: PRESENT: other - Right-sided tube thoracostomy in place. No air leak. Cardiovascular exam: PRESENT: RRR Pulses: PRESENT: normal radial pulses Vascular exam: PRESENT: normal capillary refill GI/Abdominal exam: PRESENT: soft. ABSENT: distended, tenderness Rectal exam: PRESENT: deferred Extremities exam: ABSENT: clubbing Musculoskeletal exam: ABSENT: deformity Neurological exam: PRESENT: alert, awake, oriented to person, oriented to place, oriented to time, oriented to situation Psychiatric exam: ABSENT: agitated, anxious, depressed Focused psych exam: ABSENT: delusional Skin exam: ABSENT: erythema, jaundice Results Laboratory Results: 05/28/18 12:00 05/28/18 12:00 05/28/18 12:00 Troponin I < 0.012 Impressions: Chest X-Ray 05/29/18 06:28 IMPRESSION: No significant pneumothorax. Assessment & Plan - Diagnosis (1) Recurrent spontaneous pneumothorax Is this a current diagnosis for this admission?: Yes - Plan Summary Plan Summary: This is a 37-year-old female with a recurrent right-sided spontaneous pneumothorax. The patient has no appreciable air leak today. She has no shortness of breath. She requests that VATS be performed here. Risks/benefits discussed, informed consent obtained, and all questions answered. Plan for surgery this afternoon.
[2018-05-31] MEDS: DEXTROSE 5%-LACTATED RINGERS 1,000 ML IV PRN ×2 (13:21→22:31)
[2018-05-31] MEDS ORDERED: LIDOCAINE 0.5% INJ-PF (5 MG/ML) 50 ML SDV ONE (14:46)
[2018-05-31] MEDS ORDERED: LIDOCAINE 1% INJ-PF (10 MG/ML) 30 ML SDV ONE (14:46)
[2018-05-31] MEDS ORDERED: LIDOCAINE 2% INJ-PF (100 MG/5 ML) SYRINGE ONE (14:50)
[2018-05-31] MEDS ORDERED: FENTANYL CITRATE INJ/PF 250 MCG/5 ML AMPULE ONE (14:50)
[2018-05-31] MEDS ORDERED: EPHEDRINE SULFATE INJ 50 MG/1 ML AMPULE ONE (14:51)
[2018-05-31] MEDS ORDERED: MIDAZOLAM 2 MG/2 ML INJ ONE (14:51)
[2018-05-31] MEDS ORDERED: PROPOFOL INJ 200 MG/20 ML VIAL IV ONE (14:51)
[2018-05-31] MEDS ORDERED: ACETAMINOPHEN 1,000 MG/100 ML RTUPB IV ONE (14:51)
[2018-05-31] MEDS ORDERED: DEXMEDETOMIDINE INJ 80 MCG/20 ML VIAL IV ONE (14:51)
[2018-05-31] MEDS: DOCUSATE SODIUM 100 MG CAPSULE PO SCH ×2 (18:26→22:37)
[2018-05-31] MEDS: ENOXAPARIN SODIUM INJ 30 MG/0.3 ML DISP.SYRIN SUBCUT SCH (18:27)
[2018-05-31] MEDS ORDERED: BUPIVACAINE HCL 0.5 % INJ/PF 30 ML SDV ONE (18:49)
[2018-05-31] MEDS ORDERED: CEFAZOLIN INJ 1 GM VIAL ONE (18:54)
[2018-05-31] MEDS ORDERED: SUGAMMADEX SODIUM 200 MG/2 ML SDV IV ONE (19:43)
[2018-05-31] MEDS ORDERED: PROMETHAZINE HCL INJ 25 MG/1 ML VIAL IV PRN ×2 (19:49)
[2018-05-31] MEDS ORDERED: FENTANYL CITRATE INJ/PF 100 MCG/2 ML AMPUL IV PRN ×3 (19:49)
[2018-05-31] MEDS ORDERED: MORPHINE SULFATE 10 MG/ML INJ IV PRN (19:49)
[2018-05-31] MEDS ORDERED: MEPERIDINE HCL/PF INJ 25 MG/1 ML DISP.SYRIN IV PRN (19:49)
[2018-05-31] MEDS ORDERED: ONDANSETRON HCL INJ/PF 4 MG/2 ML SDV IV PRN (19:49)
[2018-05-31] MEDS ORDERED: DIPHENHYDRAMINE HCL 50 MG/ML VIAL IV PRN (19:49)
--- NOTE | 2018-05-31 20:40 | Operative Report ---
Nonrecallable Operative Report DATE OF SURGERY: 05/31/18 PREOPERATIVE DIAGNOSIS: recurrent right spontaneous pneumothorax POSTOPERATIVE DIAGNOSIS: same OPERATION: 1. Right-sided video-assisted thorascopic surgery. 2. Right upper lobe bleb resection, stapled. 3. Mechanical pleurodesis. SURGEON: ZOHAIB GANN ANESTHESIA: GA TISSUE REMOVED OR ALTERED: Right upper lobe wedge resection COMPLICATIONS: None apparent ESTIMATED BLOOD LOSS: 50 cc PROCEDURE: Drains/implants: 1. 32 Welsh chest tube placed posteriorly, and directed anteriorly. 2. 32 Welsh chest tube placed in the mid axillary line inferiorly, directed posteriorly. Procedure in detail: After informed consent was obtained the patient was brought to the operating room and laid in the left lateral decubitus position. The previous right tube thoracostomy was removed. The right chest was prepped and draped in a normal sterile fashion. The right limb of the dual-lumen endotracheal tube was occluded, and the right lung was deflated. An inferior 12 mm port was placed under direct vision over top of the rib. Gas insufflation was attached, and pneumo was achieved. Pressure was set at 8 mmHg. This provided good deflation of the lung. Next an anterior and posterior 5 mm port were placed under direct fluoroscopic vision. The lung was inspected. At the superior most aspect of the right upper lobe there were multiple blebs present. The blebs were elevated and excised using the 45 Endo LUCILLE stapling device. Once the wedge resection was completed, the portion of right upper lobe was removed through the 12 mm port. Next, mechanical pleurodesis was performed using a Bovie scratch pad. The entire intrathoracic parietal pleura was scratched and abraded using the Bovie scratch pad. Once this was completed, the inferior and posterior ports were removed and 32 Welsh chest tubes were inserted. The posterior most chest tube was directed anteriorly while the inferior chest tube was directed posteriorly. The chest tubes were sutured to the chest wall using 0 silk suture. Once this was completed the lung was reinflated. There was no air leak noted from the staple line. The remaining 5 mm anterior trocar was removed. The skin of the anterior port was closed using 3-0 nylon suture in simple interrupted fashion. Dressings were then fashioned around the chest tubes. The chest tubes were placed to Pleur-evac suction. The patient was then returned to the supine position. At this time the procedure was concluded. All sponge, instrument, and needle counts were correct x2. Condition: Stable.
[2018-05-31] MEDS: MORPHINE SULFATE 60 MG/60 ML RTUINJ IV PRN (22:35)
[2018-06-01] MEDS: KETOROLAC TROMETHAMINE INJ/PF 30 MG/1 ML SDV IV SCH ×3 (05:02→21:18)
[2018-06-01] MEDS ORDERED: ONDANSETRON HCL INJ/PF 4 MG/2 ML SDV IV PRN (08:00)
--- NOTE | 2018-06-01 08:18 | PDOC PROGRESS REPORT ---
Subjective Reason For Visit: RECURRENT SPONTANEOUS PNEUMOTHORAX Physical Exam Vital Signs: Temp Pulse Resp BP Pulse Ox 98.9 F 61 15 119/50 L 100 06/01/18 02:30 06/01/18 02:30 06/01/18 02:30 06/01/18 02:30 06/01/18 02:30 Intake & Output 05/31/18 06/01/18 06/02/18 06:59 06:59 06:59 Intake Total 240 2327 Output Total 10 Balance 240 2317 Weight 47.1 kg 49 kg Results Laboratory Results: 05/28/18 12:00 05/28/18 12:00 05/28/18 12:00 Troponin I < 0.012 Impressions: Chest X-Ray 05/29/18 06:28 IMPRESSION: No significant pneumothorax. Assessment & Plan - Diagnosis (1) Recurrent spontaneous pneumothorax Is this a current diagnosis for this admission?: Yes - Plan Summary Plan Summary: 37-year-old female status post VATS with bleb resection for a recurrent spontaneous pneumothorax on the right. The patient is doing well this morning. 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 There is a very small air leak present with forceful coughing. There is sanguinous output from her chest tube. Continue chest tubes to 20 cm of water suction. Out of bed today. Continue current pain medicine. Lovenox for DVT prophylaxis.
--- NOTE | 2018-06-01 09:45 | RADIOLOGY REPORT (SQ) ---
EXAM DESCRIPTION: CHEST SINGLE VIEW COMPLETED DATE/TIME: 06/01/2018 8:51 am REASON FOR STUDY: s/p VATS COMPARISON: 05/29/2018 EXAM PARAMETERS: NUMBER OF VIEWS: One view. TECHNIQUE: Single frontal radiographic view of the chest acquired. RADIATION DOSE: NA LIMITATIONS: None. FINDINGS: LUNGS AND PLEURA: There has been placement of additional large bore right-sided chest tube with tubing kinked over right mid lung. No significant pneumothorax. No new airspace disease. No effusion. Unremarkable left hemithorax. MEDIASTINUM AND HILAR STRUCTURES: No masses. Contour normal. HEART AND VASCULAR STRUCTURES: Heart normal in size. Normal vasculature. BONES: No acute findings. HARDWARE: 2 large bore right-sided chest tubes. IMPRESSION: Placement of an additional large bore right-sided chest tube with tubing kinked over rig ht mid lung. No significant pneumothorax. TECHNICAL DOCUMENTATION: JOB ID: [id number] [employer]- All Rights Reserved Reading location - IP/workstation name: [email or web address]
[2018-06-01] MEDS: FAMOTIDINE 20 MG TABLET PO SCH ×2 (10:35→21:18)
[2018-06-01] MEDS: DOCUSATE SODIUM 100 MG CAPSULE PO SCH ×2 (10:35→18:09)
[2018-06-01] MEDS: ENOXAPARIN SODIUM INJ 30 MG/0.3 ML DISP.SYRIN SUBCUT SCH (10:36)
[2018-06-02] MEDS: KETOROLAC TROMETHAMINE INJ/PF 30 MG/1 ML SDV IV SCH (05:12)
[2018-06-02] MEDS: MORPHINE SULFATE 60 MG/60 ML RTUINJ IV PRN (05:15)
[2018-06-02] MEDS: ENOXAPARIN SODIUM INJ 30 MG/0.3 ML DISP.SYRIN SUBCUT SCH (09:21)
[2018-06-02] MEDS: DOCUSATE SODIUM 100 MG CAPSULE PO SCH ×2 (09:22→17:37)
[2018-06-02] MEDS: FAMOTIDINE 20 MG TABLET PO SCH ×2 (09:22→21:32)
--- NOTE | 2018-06-02 10:53 | PDOC PROGRESS REPORT ---
Subjective Progress Note for:: 06/02/18 Subjective:: feels better c/o some stabbing pain iwth deep inspiration Reason For Visit: RECURRENT SPONTANEOUS PNEUMOTHORAX s/p vats procedure. Physical Exam Vital Signs: Temp Pulse Resp BP Pulse Ox 98.0 F 59 L 17 130/74 H 94 06/02/18 07:23 06/02/18 07:23 06/02/18 09:00 06/02/18 07:23 06/02/18 07:23 Intake & Output 06/01/18 06/02/18 06/03/18 06:59 06:59 06:59 Intake Total 2327 1300 Output Total 10 Balance 2317 1300 Weight 49 kg 49.2 kg General appearance: PRESENT: no acute distress Head exam: PRESENT: normocephalic Eye exam: PRESENT: conjunctiva pink Mouth exam: PRESENT: moist Neck exam: PRESENT: full ROM Respiratory exam: PRESENT: other - sl decreased on rt. normal on left chest t ubes without leak\ nl chest tube fluctulations. Pulses: PRESENT: normal radial pulses, normal femoral pulses GI/Abdominal exam: PRESENT: soft Rectal exam: PRESENT: deferred Extremities exam: PRESENT: full ROM Musculoskeletal exam: PRESENT: full ROM Results Laboratory Results: 05/28/18 12:00 05/28/18 12:00 05/28/18 12:00 Troponin I < 0.012 Impressions: Chest X-Ray 06/01/18 07:44 IMPRESSION: Placement of an additional large bore right-sided chest tube with tubing kinked over right mid lung. No significant pneumothorax. Assessment & Plan - Plan Summary Plan Summary: doing well no further leak seen in pleurovac will waterseal chest tubes obtain cxr in 2-3 hrs on waterseal.
--- NOTE | 2018-06-02 12:39 | RADIOLOGY REPORT (SQ) ---
EXAM DESCRIPTION: CHEST SINGLE VIEW COMPLETED DATE/TIME: 06/02/2018 12:14 pm REASON FOR STUDY: f/u pneumothorax COMPARISON: Chest films 05/14/2017, 05/28/2018, 05/29/2018, 06/01/2018 EXAM PARAMETERS: NUMBER OF VIEWS: One view. TECHNIQUE: Single frontal radiographic view of the chest acquired. RADIATION DOSE: NA LIMITATIONS: None. FINDINGS: LUNGS AND PLEURA: 2 right-sided large bore chest tubes are in place. No pneumothorax. No acute infiltrates. No pleural effusion. MEDIASTINUM AND HILAR STRUCTURES: No masses. Contour normal. HEART AND VASCULAR STRUCTURES: Heart normal in size. Normal vasculature. BONES: No acute findings. HARDWARE: 2 right-sided large bore chest tubes are in place OTHER: No other significant finding. IMPRESSION: Two right-sided large bore chest tubes are in place. No pneumothorax. No acute infiltr ates. TECHNICAL DOCUMENTATION: JOB ID: [id number] [employer]- All Rights Reserved Reading location - IP/workstation name: [email or web address]
[2018-06-03] MEDS: MORPHINE SULFATE 60 MG/60 ML RTUINJ IV PRN (01:08)
--- NOTE | 2018-06-03 08:37 | RADIOLOGY REPORT (SQ) ---
EXAM DESCRIPTION: CHEST SINGLE VIEW COMPLETED DATE/TIME: 06/03/2018 8:29 am REASON FOR STUDY: r/o pneumothorax COMPARISON: 06/02/2018 EXAM PARAMETERS: NUMBER OF VIEWS: One view. TECHNIQUE: Single frontal radiographic view of the chest acquired. RADIATION DOSE: NA LIMITATIONS: None. FINDINGS: LUNGS AND PLEURA: Small right apical pneumothorax marked with arrows. 2 large bore right-sided chest tubes are in place. No right-sided infiltrates. On the left side, there is minimal basilar atelectasis with blurring of the left hemidiaphragm. No g ross pleural effusion or pneumothorax. MEDIASTINUM AND HILAR STRUCTURES: No masses. Contour normal. HEART AND VASCULAR STRUCTURES: Heart normal in size. Normal vasculature. BONES: No acute findings. HARDWARE: 2 right-sided chest tubes are in place OTHER: No other significant finding. IMPRESSION: Small right apical pneumothorax marked with arrows. TECHNICAL DOCUMENTATION: JOB ID: [id number] [employer]- All Rights Reserved Reading location - IP/workstation name: [email or web address]
[2018-06-03] MEDS: FAMOTIDINE 20 MG TABLET PO SCH ×2 (09:07→21:39)
[2018-06-03] MEDS: ENOXAPARIN SODIUM INJ 30 MG/0.3 ML DISP.SYRIN SUBCUT SCH ×2 (09:07→09:10)
[2018-06-03] MEDS: DOCUSATE SODIUM 100 MG CAPSULE PO SCH ×2 (09:07→18:15)
--- NOTE | 2018-06-03 13:00 | RADIOLOGY REPORT (SQ) ---
EXAM DESCRIPTION: CHEST SINGLE VIEW COMPLETED DATE/TIME: 06/03/2018 12:26 pm REASON FOR STUDY: S/P CHEST TUBE REMOVAL COMPARISON: AP CHEST 06/03/2018, 0755 HOURS EXAM PARAMETERS: NUMBER OF VIEWS: One view. TECHNIQUE: Single frontal radiographic view of the chest acquired. RADIATION DOSE: NA LIMITATIONS: None. FINDINGS: LUNGS AND PLEURA: THE RIGHT CHEST TUBE OVER THE MID 3RD RIGHT CHEST SINCE BEEN REMOVED. P ERSISTENT RIGHT CHEST TUBE WITH THE TIP AT THE APEX RIGHT HEMITHORAX. SMALL PERSISTENT RIGHT APICAL PNEUMOTHORAX, UNCHANGED FROM FILMS EARLIER TODAY. NO ACUTE INFILTRATES. NO GROSS PLEURAL EFFUSION. MEDIASTINUM AND HILAR STRUCTURES: No masses. Contour normal. HEART AND VASCULAR STRUCTURES: Heart normal in size. Normal vasculature. BONES: No acute findings. HARDWARE: Single right chest tube in place. OTHER: No other significant finding. IMPRESSION: Removal of 1 of the patient's chest tubes. Persistent single right chest tube with the tip at the right lung apex. Persistent small right apica l pneumothorax. TECHNICAL DOCUMENTATION: JOB ID: [id number] [employer]- All Rights Reserved Reading location - IP/workstation name: [email or web address]
[2018-06-04] MEDS: DOCUSATE SODIUM 100 MG CAPSULE PO SCH ×2 (10:05→17:06)
[2018-06-04] MEDS: FAMOTIDINE 20 MG TABLET PO SCH ×2 (10:05→22:04)
[2018-06-04] MEDS: ENOXAPARIN SODIUM INJ 30 MG/0.3 ML DISP.SYRIN SUBCUT SCH (10:06)
--- NOTE | 2018-06-04 10:11 | PDOC PROGRESS REPORT ---
Subjective Progress Note for:: 06/04/18 Subjective:: still with pain with deep inspiration s/p vats procedure for pleuodesis Reason For Visit: RECURRENT SPONTANEOUS PNEUMOTHORAX post op pleurodesis Physical Exam Vital Signs: Temp Pulse Resp BP Pulse Ox 98.4 F 62 16 133/69 H 97 06/04/18 07:23 06/04/18 07:23 06/04/18 07:23 06/04/18 07:23 06/04/18 07:23 Intake & Output 06/03/18 06/04/18 06/05/18 06:59 06:59 06:59 Intake Total 1685 706 Balance 1685 706 Weight 54.1 kg 53.2 kg General appearance: PRESENT: no acute distress Head exam: PRESENT: atraumatic Eye exam: PRESENT: EOMI Mouth exam: PRESENT: moist, neck supple Neck exam: PRESENT: full ROM Respiratory exam: PRESENT: clear to auscultation celena, other - the chest tube has no leak multiple manuvers did not produce any air leak Cardiovascular exam: PRESENT: RRR Pulses: PRESENT: normal radial pulses, normal femoral pulses GI/Abdominal exam: PRESENT: soft Rectal exam: PRESENT: deferred Extremities exam: PRESENT: full ROM Musculoskeletal exam: PRESENT: full ROM Results Laboratory Results: 05/28/18 12:00 05/28/18 12:00 05/28/18 12:00 Troponin I < 0.012 Status: Image reviewed by me - this am cxr reviewd I do not see a significant ptx. the top of the staple line is visualized. Assessment & Plan - Plan Summary Plan Summary: s/p vats procedure for stapleing of blebs and pleurodesis for spont pneumothorax now still with chest tube on suction, no air leak I do not see a residual ptx on this am's cxr radiology report pending plan will cont suction for 1 more day repeat cxr in am
--- NOTE | 2018-06-04 10:46 | RADIOLOGY REPORT (SQ) ---
EXAM DESCRIPTION: CHEST SINGLE VIEW COMPLETED DATE/TIME: 06/04/2018 10:11 am REASON FOR STUDY: r/o ptx COMPARISON: 06/03/2018 EXAM PARAMETERS: NUMBER OF VIEWS: One view. TECHNIQUE: Single frontal radiographic view of the chest acquired. RADIATION DOSE: NA LIMITATIONS: None. FINDINGS: LUNGS AND PLEURA: Improvement in the right pneumothorax. Indwelling large caliber chest t ube. Left lung clear. MEDIASTINUM AND HILAR STRUCTURES: No masses. Contour normal. HEART AND VASCULAR STRUCTURES: Heart normal in size. Normal vasculature. BONES: No acute findings. HARDWARE: Chest tube. OTHER: No other significant finding. IMPRESSION: Improved aeration of the right lung with persistent small apical pneumothorax. TECHNICAL DOCUMENTATION: JOB ID: [id number] [employer]- All Rights Reserved Reading location - IP/workstation name: [email or web address]
[2018-06-04] MEDS: KETOROLAC TROMETHAMINE INJ/PF 30 MG/1 ML SDV IV SCH ×2 (10:59→17:12)
[2018-06-04] MEDS: MORPHINE SULFATE 60 MG/60 ML RTUINJ IV PRN (11:00)
[2018-06-05] MEDS: KETOROLAC TROMETHAMINE INJ/PF 30 MG/1 ML SDV IV SCH ×5 (01:40→23:50)
--- NOTE | 2018-06-05 08:27 | RADIOLOGY REPORT (SQ) ---
EXAM DESCRIPTION: CHEST SINGLE VIEW COMPLETED DATE/TIME: 06/05/2018 7:57 am REASON FOR STUDY: f/u ptx COMPARISON: 06/04/2018. EXAM PARAMETERS: NUMBER OF VIEWS: One view. TECHNIQUE: Single frontal radiographic view of the chest acquired. RADIATION DOSE: NA LIMITATIONS: None. FINDINGS: LUNGS AND PLEURA: Small right apical pneumothorax unchanged. No infiltrates. No pleural e ffusion. MEDIASTINUM AND HILAR STRUCTURES: No masses. Contour normal. HEART AND VASCULAR STRUCTURES: Heart normal in size. Normal vasculature. BONES: No acute findings. HARDWARE: Stable right chest tube. OTHER: No other significant finding. IMPRESSION: STABLE RIGHT CHEST TUBE. NO CHANGE IN THE SMALL RIGHT APICAL PNEUMOTHORAX. TECHNICAL DOCUMENTATION: JOB ID: [id number] [employer]- All Rights Reserved Reading location - IP/workstation name: [email or web address]
--- NOTE | 2018-06-05 08:40 | PDOC PROGRESS REPORT ---
Subjective Progress Note for:: 06/05/18 Subjective:: less chest pain with inspiration after starting toradol yesterday\ no c/o sob Reason For Visit: RECURRENT SPONTANEOUS PNEUMOTHORAX s/p vats procedure,pleuodesis for spont ptx. Physical Exam Vital Signs: Temp Pulse Resp BP Pulse Ox 98.3 F 60 17 122/57 L 98 06/04/18 23:32 06/04/18 23:32 06/04/18 15:39 06/04/18 23:32 06/04/18 23:32 Intake & Output 06/04/18 06/05/18 06/06/18 06:59 06:59 06:59 Intake Total 706 2396 Balance 706 2396 Weight 53.2 kg 51.6 kg General appearance: PRESENT: no acute distress Head exam: PRESENT: normocephalic Eye exam: PRESENT: conjunctiva pink Mouth exam: PRESENT: moist Neck exam: PRESENT: full ROM Respiratory exam: PRESENT: clear to auscultation celena, unlabored, other - no evidence of air leak. GI/Abdominal exam: PRESENT: soft Rectal exam: PRESENT: deferred Results Laboratory Results: 05/28/18 12:00 05/28/18 12:00 05/28/18 12:00 Troponin I < 0.012 Impressions: Chest X-Ray 06/05/18 07:00 IMPRESSION: STABLE RIGHT CHEST TUBE. NO CHANGE IN THE SMALL RIGHT APICAL PNEUMOTHORAX. Assessment & Plan - Plan Summary Plan Summary: cxr still with small apical ptx on or off suction stable cxr good fluctuation on chest tube no air leak\ will waterseal today and repeat cxr in am
[2018-06-05] MEDS: FAMOTIDINE 20 MG TABLET PO SCH ×2 (09:15→21:47)
[2018-06-05] MEDS: DOCUSATE SODIUM 100 MG CAPSULE PO SCH ×2 (09:15→17:54)
[2018-06-05] MEDS: ENOXAPARIN SODIUM INJ 30 MG/0.3 ML DISP.SYRIN SUBCUT SCH (09:16)
[2018-06-05] MEDS: MORPHINE SULFATE 60 MG/60 ML RTUINJ IV PRN (23:57)
[2018-06-06] MEDS: KETOROLAC TROMETHAMINE INJ/PF 30 MG/1 ML SDV IV SCH ×4 (06:06→23:15)
[2018-06-06] MEDS: DOCUSATE SODIUM 100 MG CAPSULE PO SCH ×2 (09:01→18:31)
[2018-06-06] MEDS: ENOXAPARIN SODIUM INJ 30 MG/0.3 ML DISP.SYRIN SUBCUT SCH (09:01)
[2018-06-06] MEDS: FAMOTIDINE 20 MG TABLET PO SCH ×2 (09:01→21:49)
--- NOTE | 2018-06-06 10:55 | RADIOLOGY REPORT (SQ) ---
EXAM DESCRIPTION: CHEST SINGLE VIEW COMPLETED DATE/TIME: 06/06/2018 10:33 am REASON FOR STUDY: f/u pneumothorax COMPARISON: Multiple chest films since 05/28/2018 EXAM PARAMETERS: NUMBER OF VIEWS: One view. TECHNIQUE: Single frontal radiographic view of the chest acquired. RADIATION DOSE: NA LIMITATIONS: None. FINDINGS: LUNGS AND PLEURA: Stable small right apical pneumothorax, unchanged right-sided large for chest tube. No focal infiltrates. No pleural effusion. MEDIASTINUM AND HILAR STRUCTURES: No masses. Contour normal. HEART AND VASCULAR STRUCTURES: Heart normal in size. Normal vasculature. BONES: No acute findings. HARDWARE: Right chest tube in place, stable small right apical pneumothorax OTHER: No other significant finding. IMPRESSION: Right chest tube in place, stable small right apical pneumothorax TECHNICAL DOCUMENTATION: JOB ID: [id number] [employer]- All Rights Reserved Reading location - IP/workstation name: [email or web address]
--- NOTE | 2018-06-06 18:31 | PDOC PROGRESS REPORT ---
Subjective Progress Note for:: 06/06/18 Reason For Visit: RECURRENT SPONTANEOUS PNEUMOTHORAX s/p pleurodesis via vats procedure Physical Exam Vital Signs: Temp Pulse Resp BP Pulse Ox 98.6 F 72 16 109/61 98 06/06/18 15:24 06/06/18 15:24 06/06/18 15:24 06/06/18 15:24 06/06/18 15:24 Intake & Output 06/05/18 06/06/18 06/07/18 06:59 06:59 06:59 Intake Total 2396 562 Output Total 50 Balance 2396 512 Weight 51.6 kg 50.5 kg 50.5 kg General appearance: PRESENT: no acute distress Head exam: PRESENT: normocephalic Eye exam: PRESENT: EOMI Mouth exam: PRESENT: moist Respiratory exam: PRESENT: clear to auscultation celena, unlabored Cardiovascular exam: PRESENT: RRR Pulses: PRESENT: normal radial pulses, normal femoral pulses GI/Abdominal exam: PRESENT: soft Rectal exam: PRESENT: deferred Extremities exam: PRESENT: full ROM Musculoskeletal exam: PRESENT: full ROM Neurological exam: PRESENT: alert, awake, oriented to time Skin exam: PRESENT: dry Results Laboratory Results: 05/28/18 12:00 05/28/18 12:00 05/28/18 12:00 Troponin I < 0.012 Impressions: Chest X-Ray 06/06/18 08:45 IMPRESSION: Right chest tube in place, stable small right apical pneumothorax Assessment & Plan - Plan Summary Plan Summary: eval of cxr this am show essentially no change small apical ptx has no change in 4 days whether on or off suction no leak with good fluctulations on pleuovac will dc second chest tube today and repeat cxr.
--- NOTE | 2018-06-06 19:11 | RADIOLOGY REPORT (SQ) ---
EXAM DESCRIPTION: CHEST SINGLE VIEW COMPLETED DATE/TIME: 06/06/2018 7:02 pm REASON FOR STUDY: CHEST TUBE REMOVAL COMPARISON: 06/06/2018 EXAM PARAMETERS: NUMBER OF VIEWS: One view. TECHNIQUE: Single frontal radiographic view of the chest acquired. RADIATION DOSE: NA LIMITATIONS: None. FINDINGS: LUNGS AND PLEURA: There is marked lucency in the right apex. The superior pleural margin is at the level of the clavicle. MEDIASTINUM AND HILAR STRUCTURES: No masses. Contour normal. HEART AND VASCULAR STRUCTURES: Heart normal in size. Normal vasculature. BONES: No acute findings. HARDWARE: Thoracotomy tube has been removed from the right side. OTHER: No other significant finding. IMPRESSION: Right pneumothorax of about 15%. Thoracotomy tube has been withdrawn. TECHNICAL DOCUMENTATION: JOB ID: [id number] [employer]- All Rights Reserved Reading location - IP/workstation name: [email or web address]
[2018-06-06] MEDS ORDERED: LACTULOSE SYRUP 20 GM/30 ML UDCUP PO ONE (21:00)
[2018-06-07] MEDS: KETOROLAC TROMETHAMINE INJ/PF 30 MG/1 ML SDV IV SCH (05:21)
[2018-06-07] MEDS ORDERED: MORPHINE SULFATE 60 MG/60 ML RTUINJ IV PRN (08:33)
--- NOTE | 2018-06-07 08:44 | RADIOLOGY REPORT (SQ) ---
EXAM DESCRIPTION: CHEST SINGLE VIEW COMPLETED DATE/TIME: 06/07/2018 7:58 am REASON FOR STUDY: Pneumo COMPARISON: Multiple chest films since 05/28/2018, most recently 06/06/2018 EXAM PARAMETERS: NUMBER OF VIEWS: One view. TECHNIQUE: Single frontal radiographic view of the chest acquired. RADIATION DOSE: NA LIMITATIONS: None. FINDINGS: LUNGS AND PLEURA: Stable small right apical pneumothorax, unchanged from 1843 hours, 2018. Lungs are otherwise well inflated and clear. No significant pleural effusions. No pulmonary nodules . MEDIASTINUM AND HILAR STRUCTURES: No masses. Contour normal. HEART AND VASCULAR STRUCTURES: Heart normal in size. Normal vasculature. BONES: No acute findings. HARDWARE: None in the chest. OTHER: No other significant finding. IMPRESSION: Stable small right apical pneumothorax, unchanged from 06/06/2018 1843 hours. TECHNICAL DOCUMENTATION: JOB ID: [id number] [employer]- All Rights Reserved Reading location - IP/workstation name: [email or web address]
--- NOTE | 2018-06-07 10:06 | PDOC PROGRESS REPORT ---
Subjective Reason For Visit: RECURRENT SPONTANEOUS PNEUMOTHORAX Physical Exam Vital Signs: Temp Pulse Resp BP Pulse Ox 98.7 F 71 16 111/54 L 98 06/06/18 23:46 06/06/18 23:46 06/07/18 07:00 06/06/18 23:46 06/07/18 07:00 Intake & Output 06/06/18 06/07/18 06/08/18 06:59 06:59 06:59 Intake Total 562 2022 Output Total 50 1825 Balance 512 197 Weight 50.5 kg 51.5 kg Results Laboratory Results: 05/28/18 12:00 05/28/18 12:00 05/28/18 12:00 Troponin I < 0.012 Impressions: Chest X-Ray 06/07/18 06:57 IMPRESSION: Stable small right apical pneumothorax, unchanged from 06/06/2018 1843 hours. Assessment & Plan - Diagnosis (1) Recurrent spontaneous pneumothorax Is this a current diagnosis for this admission?: Yes - Plan Summary Plan Summary: This is a 37-year-old female status post right-sided VATS. The patient has a persistent "pneumothorax" in the right upper lobe. I believe this to represent the area of right upper lobe resection. I do not believe she has a persistent air leak or significant pneumothorax. The patient is breathing well. She has no significant difficulty with movement. 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 Transition to oral pain medication. Ambulate. Aggressive pulmonary toilet. Plan discharge tomorrow as long as x-ray remains stable.
[2018-06-07] MEDS: ENOXAPARIN SODIUM INJ 30 MG/0.3 ML DISP.SYRIN SUBCUT SCH (10:30)
[2018-06-07] MEDS: DOCUSATE SODIUM 100 MG CAPSULE PO SCH ×2 (10:30→17:21)
[2018-06-07] MEDS: FAMOTIDINE 20 MG TABLET PO SCH ×2 (10:30→21:29)
[2018-06-07] MEDS: IBUPROFEN 800 MG TABLET PO SCH ×2 (12:27→16:59)
[2018-06-07] MEDS: HYDROCODONE/ACETAMINOPHEN 10-325 MG TABLET PO PRN ×2 (15:04→21:29)
[2018-06-08] MEDS ORDERED: GUAIFENESIN/D-METHORPHAN (200-20 MG) SYRUP 10 ML PO PRN (00:09)
[2018-06-08] MEDS: HYDROCODONE/ACETAMINOPHEN 10-325 MG TABLET PO PRN (05:37)
--- NOTE | 2018-06-08 06:37 | RADIOLOGY REPORT (SQ) ---
EXAM DESCRIPTION: XR CHEST 1 VIEW COMPLETED DATE/TME: 06/08/2018 06:00 CLINICAL HISTORY: 37 years, Female, S/p VATS with RUL resection COMPARISON: 06/07/2018 chest NUMBER OF VIEWS: 1 TECHNIQUE: Portable chest LIMITATIONS: None. FINDINGS: The heart size is normal. Stable right apical pneumothorax, with approximately 3.7 cm of pleural separation. No left-sided pneumothorax. Lungs are hyperinflated but clear. IMPRESSION: Stable right apical pneumothorax. copyright 2010 [employer]- All Rights Reserved
--- NOTE | 2018-06-08 08:28 | PDOC DISCHARGE SUMMARY ---
General - Admit/Disc Date/PCP Admission Date/Primary Care Provider: 05/28/18 13:04 Discharge Date: 06/08/18 - Discharge Diagnosis (1) Recurrent spontaneous pneumothorax Is this a current diagnosis for this admission?: Yes - Additional Information Resuscitation Status: Full Code Discharge Diet: As Tolerated Discharge Activity: Balance Activity w/Rest Home Medications: Folic Acid [Folvite 1 mg Tablet] 1 mg PO DAILY 05/28/18 Liothyronine Sodium [Cytomel] 5 mcg PO Q6AM MDD X7DAYS THEN INCREASE TO BID 05/28/18 History of Present Illness History of Present Illness: VALENTIN WILDER is a 37 year old female with a history of spontaneous pneu mothorax on the right. She has had 2 previous occurrences in the right chest, this occurrence makes her third. The patient reports coughing with pain in the right chest. The pain became worse and she began to have some difficulty breathing. This occurred earlier today. Her pain is sharp and stabbing. Her pain does not radiate. Patient presented to the emergency department for evaluation. The patient denies headache, fevers, chills, abdominal pain, nausea, vomiting, dizziness, orthostasis, blurry vision. Hospital Course Hospital Course: The patient was admitted to the hospital and placed on the floor in stable condition. The patient was then scheduled for right-sided VATS. She underwent segmental right upper lobe resection to remove the bleb disease. Afterwards the patient had 2 chest tubes placed. These were sequentially removed, without any symptomatology. The patient had a persistent right apical pneumothorax. I believe this is related to the lung resection, and not a persistent air leak. The remainder of the lung remains completely inflated. The small "pneumothorax" has remained stable over the last 3-4 days. The patient's chest tubes are out, she is ambulating, her pain is controlled with oral medications, she is to lerating a diet, and at this point she has reached maximal hospital benefit. Today, she is fit for discharge. Physical Exam Vital Signs: Temp Pulse Resp BP Pulse Ox 98.4 F 66 16 94/55 L 99 06/07/18 23:49 06/07/18 23:49 06/07/18 14:55 06/07/18 23:49 06/07/18 23:49 Intake & Output 06/07/18 06/08/18 06/09/18 06:59 06:59 06:59 Intake Total 2021 1372 Output Total 1825 Balance 197 1372 Weight 51.5 kg 51 kg Results Laboratory Results: 05/28/18 12:00 05/28/18 12:00 05/28/18 12:00 Troponin I < 0.012 Impressions: Chest X-Ray 06/08/18 06:00 IMPRESSION: Stable right apical pneumothorax. copyright 2011 [employer]- All Rights Reserved Qualifiers - * PATIENT BEING DISCHARGED WITH ANY OF THE FOLLOWING DIAGNOSIS: No Plan Discharge Plan: Discharge home. Diet as tolerated. Activity: Nonstrenuous. Follow-up with me in 7-10 days. Stevenson 10/325 mg p.o. every 6 hours as needed for pain. Time Spent: Less than 30 Minutes
[2018-06-08 09:19] VITALS: BP 118/74
[2018-06-08] MEDS: IBUPROFEN 800 MG TABLET PO SCH (09:39)
== END 2018-06-08 09:50 | disposition home or self-care (01) | DRG 165 ==
LOC: ER 11:16 → EH 13:04 → 4N 14:00
PROVIDERS: ADMIT Surgery; ATTEND Surgery
PROC: 0W9930Z Drainage of Right Pleural Cavity with Drainage Device, Percutaneous Approach (ICD-10-PCS; 2018-05-28)
PROC: 0BTC4ZZ Resection of Right Upper Lung Lobe, Percutaneous Endoscopic Approach (ICD-10-PCS; 2018-05-31)
PROC: 0B5N4ZZ Destruction of Right Pleura, Percutaneous Endoscopic Approach (ICD-10-PCS; principal; 2018-05-31 15:30)
DX: J93.83 Other pneumothorax (principal); J43.9 Emphysema, unspecified; Z87.891 Personal history of nicotine dependence
CPT/HCPCS: 36415; 71045; 71046; 80053; 81025; 84484; 85025; 88305; 88312; 93005; 93010; 94799; 96374; 99285; J0131; J0330; J0690; J1100; J1650; J1885; J2001; J2250; J2270; J2405; J2704; J3010; J3490

== ENCOUNTER → 2018-06-13 | Outpatient (CLI) | payer BC ==
--- NOTE | 2018-06-13 10:29 | RADIOLOGY REPORT (SQ) ---
EXAM DESCRIPTION: CHEST PA/LATERAL COMPLETED DATE/TIME: 06/13/2018 10:13 am REASON FOR STUDY: OTHER PNEUMOTHORAX COMPARISON: 06/08/2018 EXAM PARAMETERS: NUMBER OF VIEWS: two views TECHNIQUE: Digital Frontal and Lateral radiographic views of the chest acquired. RADIATION DOSE: NA LIMITATIONS: none FINDINGS: LUNGS AND PLEURA: Persistent decreasing right apical pneumothorax with approximately 1.9 cm of pleural separation on the current study. On the prior examination 3.7 cm of pleural separation was demonstrated. No acute pulmonary consolidation. Hyperinflation of the lungs, stable finding. MEDIASTINUM AND HILAR STRUCTURES: No masses or contour abnormalities. HEART AND VASCULAR STRUCTURES: Heart normal size. No evidence for failure. BONES: No acute findings. HARDWARE: None in the chest. OTHER: No other significant finding. IMPRESSION: 1. Since the prior examination dated 06/08/2018, decrease in size of the right apical pne umothorax. Small right apical pneumothorax is visualized. TECHNICAL DOCUMENTATION: JOB ID: [id number] [employer]- All Rights Reserved Reading location - IP/workstation name: [email or web address]
== END ==
LOC: OD 09:52
PROVIDERS: ATTEND Surgery
DX: J93.83 Other pneumothorax (principal)
CPT/HCPCS: 71046

== ENCOUNTER 2018-07-27 16:39 | Emergency (ER) | payer BC ==
--- NOTE | 2018-07-27 17:36 | RADIOLOGY REPORT (SQ) ---
EXAM DESCRIPTION: CHEST 2 VIEWS COMPLETED DATE/TIME: 07/27/2018 5:06 pm REASON FOR STUDY: back pain COMPARISON: 06/13/2018 TECHNIQUE: Frontal and lateral radiographic views of the chest acquired. NUMBER OF VIEWS: Two view. LIMITATIONS: None. FINDINGS: LUNGS AND PLEURA: No pneumothorax. No consolidation or pleural effusion. MEDIASTINUM AND HILAR STRUCTURES: Stable. HEART AND VASCULAR STRUCTURES: Stable. BONES: No acute findings. HARDWARE: None in the chest. OTHER: No other significant finding. IMPRESSION: NO ACUTE FINDINGS.No pneumothorax. TECHNICAL DOCUMENTATION: JOB ID: [id number] [id number] 2010 [employer]- All Rights Reserved Reading location - IP/workstation name: [email or web address]
--- NOTE | 2018-07-27 19:40 | ER Document Report ---
ED General - General Chief Complaint: Back Pain Stated Complaint: COUGH Time Seen by Provider: 07/27/18 18:51 Primary Care Provider: ZOHAIB GANN MD [Primary Care Provider] - Follow up as needed Mode of Arrival: Ambulatory Information source: Patient TRAVEL OUTSIDE OF THE [place] IN LAST 30 DAYS: No - HPI Patient complains to provider of: Cough and back pain Onset: Other - 3 days ago Onset/Duration: Sudden Quality of pain: Sharp Severity: Moderate Pain Level: 3 Associated symptoms: Nonproductive cough. denies: Chills, Fever Exacerbated by: Denies Relieved by: Denies Similar symptoms previously: No Recently seen / treated by doctor: No Notes: 38-year-old female with history of spontaneous pneumothoraces in the past. Had pleurodesis back in May. Having posterior lung pain with cough. No fevers or chills. No nausea vomiting or diarrhea. - Related Data Allergies/Adverse Reactions: No Known Allergies Allergy (Verified 07/27/18 16:40) Past Medical History - General Information source: Patient - Social History Smoking Status: Never Smoker Family History: Reviewed & Not Pertinent, Arthritis, CVA, DM, Hyperlipidemia, Hypertension, Malignancy Patient has suicidal ideation: No Patient has homicidal ideation: No Pulmonary Medical History: Reports: Hx Bronchitis Renal/ Medical History: Denies: Hx Peritoneal Dialysis Psychiatric Medical History: Denies: Hx Depression Past Surgical History: Reports: Other - Right-sided chest tubes for pneumothorax - Immunizations Immunizations up to date: No Hx Diphtheria, Pertussis, Tetanus Vaccination: No Review of Systems - Review of Systems Notes: Constitutional: No fevers. No chills. EENT: No eye redness. No eye pain. No ear pain. No sore throat. Cardiovascular: No chest pain. No palpitations. Respiratory: Positive for cough. No shortness of breath. No respiratory distress. Gastrointestinal: No abdominal pain. No nausea, vomiting, or diarrhea. Genitourinary: Atraumatic. No lesions. No pain. No discharge. Musculoskeletal: Atraumatic. No swelling. No deformities. Skin: No rash or lesions. Lymphatic: No swollen lymph nodes. Neurologic: No headache. No syncope. Psychiatric: No suicidal or homicidal ideation. Physical Exam - Vital signs Vitals: Temp Pulse Resp BP Pulse Ox 98.3 F 102 H 16 135/92 H 100 07/27/18 16:44 07/27/18 16:44 07/27/18 16:44 07/27/18 16:44 07/27/18 16:44 - Notes Notes: General: Well-developed, well-nourished. In no acute distress. Non-toxic ap pearing. Cardiac: Well-perfused. Regular rate and rhythm. No murmurs, rubs, or gallops. Pulmonary: No respiratory distress. No cyanosis. Bilateral lung fiels are clear to auscultation. Abdominal: Non-distended. Non-rigid. Bowels sounds are present in all four quadrants. No guarding or rebound. HEENT: Head is atraumatic. Conjunctivae not reddened. No tearing. PERRL. EOMI. Orbits atraumatic. No periorbital swelling or erythema. Oropharynx is without erythema, swelling, or exudates. Neck: Supple. No adenopathy. No meningismus. Dermatologic: Warm with good turgor. No rash. Atraumatic. Chest: Atraumatic. No chest wall tenderness to palpation. Musculoskeletal: Moves all extremities well. No range of motion deficits. no muscular or joint tenderness. No paraspinal muscle tenderness. no midline spinal tenderness or step-off. Genitourinary: Examination deferred Neurologic: No gross neurologic deficits. Psychiatric: Normal mood. Course - Re-evaluation Re-evalutation: 07/27/18 19:38 Chest x-ray negative. No fever. No sputum. Sounds like a typical upper respiratory infection. Will discharge home with Tussionex. - Vital Signs Vital signs: Temp Pulse Resp BP Pulse Ox 98.3 F 102 H 16 135/92 H 100 07/27/18 16:44 07/27/18 16:44 07/27/18 16:44 07/27/18 16:44 07/27/18 16:44 Discharge - Discharge Clinical Impression: Upper respiratory infection Qualifiers: URI type: unspecified URI Qualified Code(s): J06.9 - Acute upper respiratory infection, unspecified Condition: Good Disposition: HOME, SELF-CARE Instructions: Upper Respiratory Illness ([facility]) Prescriptions: Hydrocodone/Chlorphen P-Stirex [Tussionex Pennkinetic Susp] 5 ml PO Q12HP PRN #120 ml PRN Reason: Referrals: ZOHAIB GANN MD [Primary Care Provider] - Follow up as needed
[2018-07-27 19:45] VITALS: BP 123/69
== END 2018-07-27 19:45 | disposition home or self-care (01) ==
LOC: ER 16:39
DX: J06.9 Acute upper respiratory infection, unspecified (principal); M54.9 Dorsalgia, unspecified
CPT/HCPCS: 71046; 99283

== ENCOUNTER 2019-05-22 22:42 | Emergency (ER) | payer BC ==
--- NOTE | 2019-05-23 00:42 | ER Document Report ---
ED Medical Screen (RME) - General Stated Complaint: RIGHT SIDE PAIN/COUGH,FEVER Primary Care Provider: ZOHAIB PARKER MD [Primary Care Provider] - Follow up as needed Notes: Patient is a 38-year-old female with a past medical history significant for multiple right-sided spontaneous pneumothorax events status post pleurodesis by Dr. Parker who presents to the emergency department with a chief complaint of fever and cough for the past few days associated with a right sided chest wall discomfort. She states she is familiar with the pain of a pneumothorax and this does not feel that way. She describes it as a different pain. She also describes widespread body aches. Denies urinary complaints. I have treated and performed a rapid initial assessment of this patient. A comprehensive ED assessment and evaluation of the patient, analysis of test results and completion of medical decision making process will be conducted by additional ED providers. PHYSICAL EXAMINATION: GENERAL: Well-appearing, well-nourished and in no acute distress. A&Ox4. Answers questions appropriately. TRAVEL OUTSIDE OF THE [place] IN LAST 30 DAYS: No - Related Data Allergies/Adverse Reactions: No Known Allergies Allergy (Verified 07/27/18 16:40) Past Medical History Pulmonary Medical History: Reports: Hx Bronchitis Renal/ Medical History: Denies: Hx Peritoneal Dialysis Psychiatric Medical History: Denies: Hx Depression Past Surgical History: Reports: Other - Right-sided chest tubes for pneumothorax - Immunizations Immunizations up to date: No Hx Diphtheria, Pertussis, Tetanus Vaccination: No Physical Exam - Vital signs Vitals: Temp Pulse Resp BP Pulse Ox 99.5 F 108 H 20 123/85 99 05/22/19 23:23 05/22/19 23:23 05/22/19 23:23 05/22/19 23:23 05/22/19 23:23 Course - Vital Signs Vital signs: Temp Pulse Resp BP Pulse Ox 99.5 F 108 H 20 123/85 99 05/22/19 23:23 05/22/19 23:23 05/22/19 23:23 05/22/19 23:23 05/22/19 23:23 Doctor's Discharge - Discharge Referrals: ZOHAIB PARKER MD [Primary Care Provider] - Follow up as needed
--- NOTE | 2019-05-23 01:19 | RADIOLOGY REPORT (SQ) ---
EXAM DESCRIPTION: XR CHEST 2 VIEWS COMPLETED DATE/TME: 05/23/2019 00:40 CLINICAL HISTORY: cough, h/o R pleurodesis COMPARISON: 07/27/2018 FINDINGS: Frontal and lateral views of the chest. Cardiomediastinal silhouette: Normal size and contour. Lungs: No consolidation, pneumothorax, or pleural effusion. Bones: No acute osseous abnormality. Upper abdomen: No abnormality identified. IMPRESSION: 1. No acute pulmonary process identified.
[2019-05-23 01:23] LABS: A TYPE INFLUENZA AG NEGATIVE (NEGATIVE); B INFLUENZA AG NEGATIVE (NEGATIVE)
[2019-05-23] MEDS ORDERED: KETOROLAC TROMETHAMINE 60 MG/2 ML SDV IM ONE (05:26)
--- NOTE | 2019-05-23 05:34 | ER Document Report ---
ED Flu Like - General Chief Complaint: Chest Pain Stated Complaint: RIGHT SIDE PAIN/COUGH,FEVER Time Seen by Provider: 05/23/19 05:13 Primary Care Provider: ZOHAIB GANN MD [Primary Care Provider] - Follow up as needed Notes: CHIEF COMPLAINT: Cough and fever for the last 2 to 3 days HPI: 38-year-old female presenting to the emergency department complaining of cough and fever over the last 2 to 3 days, multiple other family members have been sick with similar symptoms. Patient complains of pain in the right chest with coughing. Has had fever up to 101 at home. Denies abdominal pain nausea vomiting. ROS: See HPI - all other systems were reviewed and are otherwise negative Constitutional: + fever Eyes: no drainage, no blurred vision ENT: no runny nose, no sore throat Cardiovascular: Positive chest pain with cough Resp: no SOB, + cough GI: no vomiting, no diarrhea, no abdominal pain : no dysuria Integumentary: no rash Allergy: no hives Musculoskeletal: Positive generalized myalgia Neurological: no numbness/tingling, no weakness MEDICATIONS: I agree with the patient medications as charted by the RN. ALLERGIES: I agree with the allergies as charted by the RN. PAST MEDICAL HISTORY/PAST SURGICAL HISTORY: Reviewed and agree as charted by RN. SOCIAL HISTORY: Reviewed and agree as charted by RN. FAMILY HISTORY: No significant familial comorbid conditions directly related to patient complaint EXAM: Reviewed vital signs as charted by RN. CONSTITUTIONAL: Alert and oriented and responds appropriately to questions. Well-appearing; well-nourished, mild distress secondary to pain HEAD: Normocephalic; atraumatic EYES: PERRL; Conjunctivae clear, sclerae non-icteric ENT: normal nose; positive rhinorrhea; moist mucous membranes; pharynx without lesions noted, no uvula edema or deviation, no tonsillar hypertrophy, phonation normal NECK: Supple without meningismus; non-tender; no cervical lymphadenopathy, no masses CARD: RRR; no murmurs, no clicks, no rubs, no gallops; symmetric distal pulses RESP: Normal chest excursion without splinting or tachypnea; breath sounds clear and equal bilaterally; no wheezes, no rhonchi, no rales, pulse oximetry 98% on room air not hypoxic ABD/GI: Normal bowel sounds; non-distended; soft, non-tender, no rebound, no guarding; no palpable organomegaly or masses. BACK: The back appears normal and is non-tender to palpation, there is no CVA tenderness EXT: Normal ROM in all joints; non-tender to palpation; no cyanosis, no effusions, no edema SKIN: Normal color for age and race; warm; dry; good turgor; no acute lesions noted NEURO: Moves all extremities equally; Motor and sensory function intact PSYCH: The patient's mood and manner are appropriate. Grooming and personal hygiene are appropriate. MDM: 38-year-old female who has had multiple other recent ill contacts with upper respiratory symptoms presenting with right chest pain with coughing only. Patient has cough, fever, runny nose, myalgia. Chest x-ray and flu swabs were negative but I suspect patient has influenza-like illness. Low suspicion for ACS or PE. Will treat symptomatically, she is outside the window for Tamiflu. TRAVEL OUTSIDE OF THE [place] IN LAST 30 DAYS: No - Related Data Allergies/Adverse Reactions: No Known Allergies Allergy (Verified 07/27/18 16:40) Home Medications: folic acid Past Medical History - Social History Smoking Status: Current Every Day Smoker Chew tobacco use (# tins/day): No Frequency of alcohol use: None Drug Abuse: None Family History: Arthritis, CVA, DM, Hyperlipidemia, Hypertension, Malignancy Patient has suicidal ideation: No Patient has homicidal ideation: No Pulmonary Medical History: Reports: Hx Bronchitis Renal/ Medical History: Denies: Hx Peritoneal Dialysis Psychiatric Medical History: Denies: Hx Depression Past Surgical History: Reports: Other - Right-sided chest tubes for pneumothorax - Immunizations Immunizations up to date: No Hx Diphtheria, Pertussis, Tetanus Vaccination: No Physical Exam - Vital signs Vitals: Temp Pulse Resp BP Pulse Ox 99.5 F 108 H 20 123/85 99 05/22/19 23:23 05/22/19 23:23 05/22/19 23:23 05/22/19 23:23 05/22/19 23:23 Course - Vital Signs Vital signs: Temp Pulse Resp BP Pulse Ox 99.1 F 102 H 20 123/85 100 05/23/19 03:16 05/23/19 03:16 05/23/19 03:16 05/23/19 03:16 05/23/19 03:16 Discharge - Discharge Clinical Impression: Influenza-like illness Chest pain Qualifiers: Chest pain type: other chest pain Qualified Code(s): R07.89 - Other chest pain; R07.8 - Other chest pain Condition: Stable Disposition: HOME, SELF-CARE Additional Instructions: Use the albuterol inhaler 2 puffs every 4 hours as needed for coughing or wheezing. Take Motrin consistently for pain and body ache. Tessalon Perles to help with cough. Prescriptions: Benzonatate [Tessalon Perles 100 mg Capsule] 100 mg PO Q8HP PRN #40 capsule PRN Reason: Ibuprofen [Motrin 600 Mg Tablet] 600 mg PO Q6H #15 tablet Albuterol Sulfate [Proair HFA Inhalation Aerosol 8.5 gm MDI] 2 puff IH Q4H PRN #1 mdi PRN Reason: Referrals: ZOHAIB GANN MD [Primary Care Provider] - Follow up as needed
[2019-05-23 06:36] VITALS: BP 116/71
== END 2019-05-23 06:33 | disposition home or self-care (01) ==
LOC: ER 22:42
DX: J11.1 Influenza due to unidentified influenza virus with other respiratory manifestations (principal); R05 Cough; R50.9 Fever, unspecified; R07.9 Chest pain, unspecified; M79.10 Myalgia, unspecified site; R09.89 Other specified symptoms and signs involving the circulatory and respiratory systems; F17.200 Nicotine dependence, unspecified, uncomplicated; Z79.899 Other long term (current) drug therapy
CPT/HCPCS: 87804; 71046; J1885; 96372; 99285